=== PATIENT | female | born 1945 | race Caucasian/White ===

== ENCOUNTER 2017-06-13 09:22 | Observation (INO) ==
[2017-06-13 09:56] LABS: Basophils # 0.1 K/mcL (0.0-0.2); Basophils % 0.6 %; Eosinophils # 0.2 K/mcL (0.0-0.6); Eosinophils % 1.7 %; Hematocrit 42.9 % (35.3-44.9); Hemoglobin 13.7 g/dL (11.5-15.4); Immature Granulocytes % 0.3 % (0-4); Lymphocytes # 1.9 K/mcL (0.6-4.6); Lymphocytes % 21.4 %; Mean Corpuscular HGB Conc 31.9 g/dL (31.6-35.5); Mean Corpuscular Hemoglobin 28.9 pg (28.0-33.3); Mean Corpuscular Volume 90.5 fL (83.0-100.0); Mean Platelet Volume 10.5 fL (9.4-12.4); Monocytes # 0.6 K/mcL (0.0-1.3); Monocytes % 6.9 %; Neutrophils # 6.1 K/mcL (1.6-8.9); Platelet Count 320 K/mcL (140-400); Red Blood Count 4.74 M/mcL (3.82-4.97); Red Cell Distribution Width 13.1 % (11.5-14.5); Segmented Neutrophils % 69.1 %
[2017-06-13 10:05] LABS: BUN/Creatinine Ratio 23 (6-26); Blood Urea Nitrogen 17 mg/dL (7-20); Calcium 9.4 mg/dL (8.6-10.8); Carbon Dioxide 25 mEq/L (19-29); Chloride 103 mEq/L (98-109); Glucose 129 mg/dL (70-99); Magnesium 1.9 mg/dL (1.6-2.6); Osmolality,Calculated 287 (280-300); Phosphorous 3.4 mg/dL (2.3-4.7); Potassium 4.5 mEq/L (3.5-4.5); Sodium 137 mEq/L (136-145); eGFR For African Americans > 60 (> 60); eGFR For Non-African Americans > 60 (> 60)
[2017-06-13 10:05] LABS: Prothrombin Time 10.8 Seconds (9.4-12.1)
[2017-06-13 10:07] LABS: Activated Partial Thrombo Time 26.5 Seconds (26.0-36.0)
--- NOTE | 2017-06-13 10:13 | Emergency Department Note ---
Disposition Clinical Impression: Tachycardia Syncope Qualifiers: Syncope type: unspecified Qualified Code(s): R55 - Syncope and collapse Closed head injury Qualifiers: Encounter type: initial encounter Qualified Code(s): S09.90XA - Unspecified injury of head, initial encounter Disposition: Admitted As Inpatient Condition: Fair Referrals: Clarita Henry MD [Primary Care Provider] - Forms: ED Satisfaction Letter Time of Disposition: 12:00 General Adult HPI - General Chief complaint: ED Syncope Stated complaint: syncope/fall Time Seen by Provider: 06/13/17 09:27 Source: patient, family Mode of arrival: wheelchair Limitations: no limitations Nursing Notes Reviewed: Yes Vital Signs Reviewed: Yes - History of Present Illness HPI Narrative: 71-year-old female with past medical history of hypertension and type 2 diabetes presents to the ED for fall with loss of consciousness due to syncope. Patient states she was standing at her desk when she said she also felt lightheaded and dizzy and fell backwards hit the back of her head against the table. She said that she was knocked unconscious for a few seconds with an woke up. She is not feeling any nausea or vomiting but she is having pain in the back of her head as well as in her upper neck. She was able to walk and move afterwards. She said whenever she stood up she was definitely lightheaded and felt dizzy. She has been falling more recently according to family they said in the last 2 or 3 months. She has been following her primary care physician has been to urgent care a few times for these episodes all they have done is increased her blood pressure medications as she was slightly hypertensive. Patient also been keeping a log of both her blood sugars and blood pressures which have been normal. Patient's only surgeries are back surgery and right breast lumpectomy. Patient is complaining of any nausea or vomiting,, chest pain, abdominal pain, change in bowel movements or pain with urination. No pain or tingling or any numbness or weakness going down the arms or legs. There has been no general weakness. Patient is complaining of generalized shortness of breath as it is at rest and also while she gets up and walks. Patient otherwise has no complaints Pain Scale: 3 - Related Data Home Medications Medication Instructions Recorded Confirmed Cholecalciferol (Vitamin D3) 2,000 unit PO DAILY 05/11/16 06/13/17 [Vitamin D] Lactobacillus Combination No.8 1 cap PO DAILY 05/11/16 06/13/17 [Adult Probiotic] Multivit-Min/FA/Lycopen/Lutein 1 tab PO DAILY 05/11/16 06/13/17 [Centrum Silver Tablet] Anastrozole [Arimidex] 1 mg PO DAILY 06/13/17 06/13/17 Aspirin [Lo-Dose Aspirin EC] 81 mg PO DAILY 06/13/17 06/13/17 Atorvastatin [Lipitor] 40 mg PO HS 06/13/17 06/13/17 Fish Oil/Dha/Epa [Fish Oil 1,200 1 cap PO DAILY 06/13/17 06/13/17 mg Fish Oil] Lisinopril [Zestril] 10 mg PO DAILY 06/13/17 06/13/17 Metoprolol [Lopressor] 25 mg PO BID 06/13/17 06/13/17 metFORMIN [Glucophage] 500 mg PO BID 06/13/17 06/13/17 Allergies Allergy/AdvReac Type Severity Reaction Status Date / Time ciprofloxacin [From Cipro] Allergy unknown Verified 06/13/17 09:47 Sulfa (Sulfonamide Allergy unknown Verified 06/13/17 09:47 Antibiotics) Review of Systems: 10 point review of systems done and negative unless otherwise stated in history of present illness. All systems ED: reviewed and negative except as stated. Review of Systems: As Per HPI Past Medical History - Past Medical History Attestation: Yes The following information was validated with the patient. 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 Absent: lymphadenopathy - Chest Chest inspection: Present: normal inspection, symmetric chest wall rise. Absent : tenderness - Respiratory Respiratory exam: Present: normal lung sounds bilaterally. Absent: respiratory distress, wheezes, accessory muscle use - Cardiovascular Cardiovascular exam: Present: normal rhythm, tachycardia, normal heart sounds - Abdominal Exam Abdominal exam: Present: soft, Non-Tender. Absent: tenderness, distention, guarding, rebound, rigidity - Extremities Exam Extremities exam: Present: normal inspection, full ROM, pedal edema (1+ pitting edema bilaterally.). Absent: tenderness - Back Exam Back exam: Present: normal inspection, full ROM. Absent: tenderness, CVA tenderness (R), CVA tenderness (L) - Neurological Exam Neurological exam: Present: alert, oriented X3, CN II-XII intact. Absent: motor sensory deficit - Expanded Neurological Exam Patient oriented to: Present: person, place, time Speech: Present: fluid speech Cranial nerves: EOM function (II, III, IV, ): Normal, facial sensation (V): Normal, facial palsy (VII): Normal, spinal accessory function (XI): Normal, tongue deviation (XII): Normal Cerebellar function: finger to nose: Normal, heel to ocampo: Normal Motor strength - LUE: 5/5 Motor strength - RUE: 5/5 Motor strength - LLE: 5/5 Motor strength - RLE: 5/5 Upper motor neuron exam: felix neglect: Absent bilaterally, pronator drift: Absent bilaterally Sensory exam upper extremity: light touch: Normal Sensory exam lower extremity: light touch: Normal Coma Scale Eye Opening: Spontaneous Coma Scale Motor Response: Obeys Commands Coma Scale Verbal Response: Oriented Coma Scale Total: 15 - Skin Skin exam: Present: warm, dry, intact, normal color Course Course Narrative: 71-year-old female presents to the ED for syncope. She did fall and hit her head did have an episode of loss of consciousness she is not nauseous or vomiting. At this time we will get a CT of the head and neck place her in a cervical collar. Will get EKG, CBC, CMP, troponin as well as urinalysis. While the other basic electrolytes. We will also get chest x-ray. Patient most likely will need to be admitted for further evaluation this was discussed with the patient and family and they agree with this plan. - Reevaluation(s) Reevaluation #1: Patient's d-dimer came back elevated at 6000 she is tachycardic into Neck there is worry about pulmonary embolism her kidney function came back good so we will get a CT angios of her chest to rule out pulmonary embolism. This was discussed with the patient and agree with this. Time: 10:46 - Consultations Consultation #1: Admitted to hospitalist service by Jon Joshi. Time: 11:59 Vital Signs Temperature 97.6 F 06/13/17 09:24 Pulse Rate 114 06/13/17 09:24 Respiratory Rate 18 06/13/17 09:24 Blood Pressure 142/113 06/13/17 09:24 O2 Sat by Pulse Oximetry 98 06/13/17 09:24 Temperature 97.6 F 06/13/17 09:24 Pulse Rate 116 06/13/17 12:00 Respiratory Rate 20 06/13/17 12:00 Blood Pressure 159/84 06/13/17 12:00 O2 Sat by Pulse Oximetry 94 06/13/17 12:00 Oxygen Delivery Oxygen Delivery Room Air Medical Decision Making - MDM Narrative Medical decision making narrative: 71-year-old female presents to the ED complaining of syncope and a fall and hitting her head. She did have a loss of consciousness but no nausea or vomiting. We did do CT of her head and neck these both came back negative she was placed in a c-collar prior to this once the CT of neck and back negative we then took it off her she was only having paraspinal neck tenderness. We did do basic labs as well as a cardiac evaluation chest x-ray and labs came back normal except for a d-dimer. D-dimer was elevated at 6007 got a CTA of her chest which came back showing no pulmonary embolisms. EKG did show a tachycardia with possible PACs this was not a flutter she does state that she has been arrhythmia but is not sure what it is. There is no signs of A. fib. She is not being treated for this arrhythmia. Due to patient's syncopal episodes we felt that admission would be best I spoke with the family and patient may agree. Spoke with the hospitalist who agreed to admit the patient. I spoke with Jon Joshi who agreed to admit the patient to their service. Patient is admitted in stable condition. Chest X-Ray 06/13/17 09:28 IMPRESSION: 1. Mild enlargement of the cardiac silhouette. 2. No acute pulmonary abnormality. D/ / Coy Yancey MD / Coy Yancey MD Interpreting Provider: Coy Yancey MD Head CT 06/13/17 09:30 IMPRESSION: 1. Mild midline occipital soft tissue contusion. No acute calvarial fracture. 2. No acute intracranial abnormality. Subtle findings suggesting chronic small vessel ischemic disease. 3. Normal cervical spine alignment with multilevel degenerative changes. No acute fracture. 4. Incidental 1.4 cm partially calcified right and 0.6 cm hypodense left thyroid nodules (see recommendations). RECOMMENDATIONS: Managing Incidental Thyroid Nodule Detected at CT or MRI or US 1. Further evaluation by thyroid Ultrasound recommended for these incidental nodules: Patient Age 18 years or less - Any nodule. Patient Age 19-34 years old - Nodule 1 cm in size or greater Patient Age 35 years or more - Nodule 1.5 cm in size or greater 2. Follow up thyroid ultrasound also recommend in these scenarios -Solitary nodule with high risk imaging features (locally invasive nodule or suspicious lymph nodes) -Any nodule in a heterogeneous enlarged thyroid gland 3. NO further imaging is recommended in the following scenarios -No f/u imaging is recommended for ITNs not meeting the above criteria. -No US or f/u recommended for ITNs without high risk features in pts. with limited life expectancy or significant co-morbidities, unless clinically warranted. Note: These recommendations do not apply to pts. w/ increased risk for thyroid cancer or pts. with symptomatic thyroid disease. Recommendations for f/u of Incidental Thyroid Nodules (ITN) found on CT, MR, NM and Extrathyroidal US are based upon the ACR white paper and Lea 3-tiered system for managing ITNs: J Am Jose G Radiol. 2015 Aug;12(2): 143-50 D/ / 06/13/2017 11:20:33 Nael Hernandez MD / [place] Interpreting Provider: Nael Hernandez MD Cervical Spine CT 06/13/17 09:35 IMPRESSION: 1. Mild midline occipital soft tissue contusion. No acute calvarial fracture. 2. No acute intracranial abnormality. Subtle findings suggesting chronic small vessel ischemic disease. 3. Normal cervical spine alignment with multilevel degenerative changes. No acute fracture. 4. Incidental 1.4 cm partially calcified right and 0.6 cm hypodense left thyroid nodules (see recommendations). RECOMMENDATIONS: Managing Incidental Thyroid Nodule Detected at CT or MRI or US 1. Further evaluation by thyroid Ultrasound recommended for these incidental nodules: Patient Age 18 years or less - Any nodule. Patient Age 19-34 years old - Nodule 1 cm in size or greater Patient Age 35 years or more - Nodule 1.5 cm in size or greater 2. Follow up thyroid ultrasound also recommend in these scenarios -Solitary nodule with high risk imaging features (locally invasive nodule or suspicious lymph nodes) -Any nodule in a heterogeneous enlarged thyroid gland 3. NO further imaging is recommended in the following scenarios -No f/u imaging is recommended for ITNs not meeting the above criteria. -No US or f/u recommended for ITNs without high risk features in pts. with limited life expectancy or significant co-morbidities, unless clinically warranted. Note: These recommendations do not apply to pts. w/ increased risk for thyroid cancer or pts. with symptomatic thyroid disease. Recommendations for f/u of Incidental Thyroid Nodules (ITN) found on CT, MR, NM and Extrathyroidal US are based upon the ACR white paper and Lea 3-tiered system for managing ITNs: J Am Jose G Radiol. 2015 Aug;12(2): 143-50 D/ / 06/13/2017 11:20:33 Nael Hernandez MD / [place] Interpreting Provider: Nael Hernandez MD Chest CTA 06/13/17 10:45 IMPRESSION: No evidence of pulmonary embolism or acute pulmonary abnormality. D/ / Asif Henson MD / Asif Henson MD Interpreting Provider: Asif Henson MD - Medical Records Medical records reviewed: Yes I reviewed the patient's medical records. - Lab Data Lab results reviewed: Yes I reviewed the patient's lab results. Result diagrams: 06/13/17 09:39 06/13/17 09:40 Lab Results 06/13/17 06/13/17 06/13/17 Range/Units 09:39 09:39 09:39 WBC 8.8 (4.3-11.1) K/mcL RBC 4.74 (3.82-4.97) M/mcL Hgb 13.7 (11.5-15.4) g/dL Hct 42.9 (35.3-44.9) % MCV 90.5 (83.0-100.0) fL MCH 28.9 (28.0-33.3) pg MCHC 31.9 (31.6-35.5) g/dL RDW 13.1 (11.5-14.5) % Plt Count 320 (140-400) K/mcL MPV 10.5 (9.4-12.4) fL Immature Gran % 0.3 (0-4) % Seg Neutrophils % 69.1 % Lymphocytes % 21.4 % Monocytes % 6.9 % Eosinophils % 1.7 % Basophils % 0.6 % Neutrophils # 6.1 (1.6-8.9) K/mcL Lymphocytes # 1.9 (0.6-4.6) K/mcL Monocytes # 0.6 (0.0-1.3) K/mcL Eosinophils # 0.2 (0.0-0.6) K/mcL Basophils # 0.1 (0.0-0.2) K/mcL PT 10.8 (9.4-12.1) Seconds INR 1.0 APTT 26.5 (26.0-36.0) Seconds D-Dimer 6682 H (0-500) ng/mLFEU Sodium (136-145) mEq/L Potassium (3.5-4.5) mEq/L Chloride (98-109) mEq/L Carbon Dioxide (19-29) mEq/L BUN (7-20) mg/dL Creatinine (0.57-1.11) mg/dL Est GFR ( Amer) (> 60) Est GFR (Non-Af Amer) (> 60) BUN/Creatinine Ratio (6-26) Glucose (70-99) mg/dL POC Glucose (58-89) Calculated Osmolality (280-300) Calcium (8.6-10.8) mg/dL Ionized Calcium (1.15-1.35) mmol/L Phosphorus (2.3-4.7) mg/dL Magnesium (1.6-2.6) mg/dL Troponin I 0.00 (0-0.03) ng/mL 06/13/17 06/13/17 Range/Units 09:40 09:49 WBC (4.3-11.1) K/mcL RBC (3.82-4.97) M/mcL Hgb (11.5-15.4) g/dL Hct (35.3-44.9) % MCV (83.0-100.0) fL MCH (28.0-33.3) pg MCHC (31.6-35.5) g/dL RDW (11.5-14.5) % Plt Count (140-400) K/mcL MPV (9.4-12.4) fL Immature Gran % (0-4) % Seg Neutrophils % % Lymphocytes % % Monocytes % % Eosinophils % % Basophils % % Neutrophils # (1.6-8.9) K/mcL Lymphocytes # (0.6-4.6) K/mcL Monocytes # (0.0-1.3) K/mcL Eosinophils # (0.0-0.6) K/mcL Basophils # (0.0-0.2) K/mcL PT (9.4-12.1) Seconds INR APTT (26.0-36.0) Seconds D-Dimer (0-500) ng/mLFEU Sodium 137 (136-145) mEq/L Potassium 4.5 (3.5-4.5) mEq/L Chloride 103 (98-109) mEq/L Carbon Dioxide 25 (19-29) mEq/L BUN 17 (7-20) mg/dL Creatinine 0.74 (0.57-1.11) mg/dL Est GFR ( Amer) > 60 (> 60) Est GFR (Non-Af Amer) > 60 (> 60) BUN/Creatinine Ratio 23 (6-26) Glucose 129 H (70-99) mg/dL POC Glucose 113 H (58-89) Calculated Osmolality 287 (280-300) Calcium 9.4 (8.6-10.8) mg/dL Ionized Calcium 1.16 (1.15-1.35) mmol/L Phosphorus 3.4 (2.3-4.7) mg/dL Magnesium 1.9 (1.6-2.6) mg/dL Troponin I (0-0.03) ng/mL - Radiology Data Radiology results reviewed: Yes I reviewed the patient's radiology results. - EKG Data EKG #1 EKG attestation: Yes I reviewed and interpreted this EKG. EKG results narrative: EKG done at 0 946 review by myself and the attending shows sinus tachycardia with multifocal atrial beats. At a rate of 120, QRS 77, QTC 379 with a normal axis. There are no ST changes, no T-wave abnormalities, no signs of heart strain or hypertrophy, no signs of any heart blocks. There is no signs of a flutter as the P waves are not all the same morphology. No signs of WPW/ Brugada syndrome. Compared with old EKG done which showed normal sinus rhythm with no acute changes were not these atrial beats and this EKG. Attestation Statement - Attestation Attestation: I, Justice Cunha DO, examined this patient [id number] and my medical decision-making was reviewed with Dr. Aroldo Barroso, Resident Physician. I agree with the documented findings, disposition and treatment plan as described except to the extent set forth below. Please see my progress notes for details. Well-appearing 71-year-old female presents to emergency room after having unwitnessed fall this morning. Patient says she got up from bed and felt very dizzy. She is trying to move around her house and his had these symptoms on and off for several weeks to months. When she is trying to go to the kitchen she got lightheaded and fell backwards and hit her head and had loss of consciousness. Patient is currently only on aspirin. She has a history of cardiac arrhythmia and she thinks it is A. fib but is not currently taking any blood thinners. Patient denies any pain except for the posterior aspect of her scalp at this time. There is no visible signs of bleeding or injury. Patient is alert oriented speaking in full sentences on arrival. She has pupils are equal round reactive to light intraocular muscles are intact. Trachea is midline. Patient was placed immediately in a c-collar precautions at this time. Lungs are clear heart is regular abdomen is soft. Patient was off work from his purpose. She has no acute neurologic deficits, no acute facial asymmetry or visible ataxia. Symptoms completely resolved on arrival here. Patient will have detailed evaluation including CT of the head, CT cervical spine, chest x-ray EKG labs including CBC chemistry troponin and electrolytes. Urinalysis also ordered. Patient will most likely need admission for what appears to be symptomatic palpitations with syncopal event today with mechanical fall closed head injury. Patient family and informed comfortable with this plan. Patient was evaluated at the bedside with the daughter and she agrees with the patient is acting appropriately and does not show any acute signs of neurologic change or deficit. See detailed documentation of physical exam, medical intervention, medical decision-making and disposition resident physician's note. 1200 Patient found an elevated d-dimer with negative CT angiography of the chest. Workup is otherwise unremarkable at this time. Fluid hydration be given secondary to the persistent tachycardia. Patient admitted to hospitals for definitive evaluation of syncopal event and fall closed head injury. No other acute pathology or injuries noted during this evaluation and treatment course.
[2017-06-13 10:38] LABS: Ionized Calcium 1.16 mmol/L (1.15-1.35)
[2017-06-13] MEDS ORDERED: 0.9 % Sodium Chloride 1,000 ML IVC ONE (12:14)
[2017-06-13 12:51] LABS: Bilirubin,Urine Negative (Negative); Blood,Urine Trace (Negative); Clarity,Urine Cloudy (Clear); Color,Urine Yellow (Yellow); Glucose,Urine (UA) Normal (Normal); Ketones,Urine Negative (Negative); Leukocyte Esterase,Urine Large (Negative); Nitrite,Urine Negative (Negative); Protein,Urine Negative (Neg-Trace); Specific Gravity,Urine > 1.030 (1.010-1.025); Urobilinogen,Urine Normal (Normal)
[2017-06-13 12:52] LABS: Bacteria,Urine Few per hpf (None-Few); Hyaline Casts,Urine None Seen per lpf (None-Few); Squamous Epithelial Cell,Urine Many per lpf (None-Few); WBC,Urine TNTC per hpf (0-3)
[2017-06-13 13:18] LABS: RBC,Urine 0-3 per hpf (0-3)
[2017-06-13 13:31] LABS: Renal Epithelial Cells,Urine Moderate per hpf (None-Few)
[2017-06-13] MEDS ORDERED: Acetaminophen 325 MG TABLET PO PRN (14:07)
[2017-06-13] MEDS ORDERED: Naloxone 0.4 MG/ML INJ IVP PRN (14:07)
[2017-06-13] MEDS ORDERED: Ondansetron 4 MG/2 ML VIAL IVP PRN (14:07)
[2017-06-13] MEDS ORDERED: D5% in Water 1,000 ML IVC PRN (14:17)
[2017-06-13] MEDS ORDERED: *HR* Dextrose 50 % in Water (Syg) 50 ML SYRINGE IVP PRN (14:17)
[2017-06-13] MEDS ORDERED: Dextrose Gel 15 GM PO PRN ×2 (14:17)
--- NOTE | 2017-06-13 14:29 | Internal Med History&Physical ---
<Jelena Torres - Last Filed: 06/13/17 15:01> Date of Encounter: 06/13/17 Time of Encounter: 14:21 Assessment and Plan (1) Syncope Current visit: Yes Status: Acute Patient has been experiencing the past several weeks of lightheadedness and near syncopal events. Today she did experience an episode of lightheadedness and she fell backwards and struck her head on a desk. She did lose consciousness for a few seconds. CT of head with no acute intracranial abnormalities. We will continue with neuro exams every 4 hours We will obtain cardiac echo Continuous cardiac monitoring Fall precautions We will obtain MRI of head Carotid Doppler Check lipid profile Continue with aspirin and statin Qualifiers: Syncope type: unspecified Qualified Code(s): R55 - Syncope and collapse (2) Closed head injury Current visit: Yes Status: Acute Qualifiers: Encounter type: initial encounter Qualified Code(s): S09.90XA - Unspecified injury of head, initial encounter (3) Atrial flutter Current visit: Yes Status: Chronic 1 patient states that atrial flutter is chronic she is on aspirin as well as metoprolol, will continue Continuous cardiac monitoring Qualifiers: Atrial flutter type: unspecified Qualified Code(s): I48.92 - Unspecified atrial flutter (4) Hypertension Current visit: Yes Status: Chronic Patient has had chronic hypertension continue with lisinopril and metoprolol Check orthostatic vital signs Qualifiers: Hypertension type: essential hypertension Qualified Code(s): I10 - Essential (primary) hypertension (5) Diabetes type 2, controlled Current visit: No Status: Chronic Accu-Cheks before meals at bedtime with sliding scale insulin-hold oral medications for now Diabetic diet Qualifiers: Diabetes mellitus complication status: without complication Diabetes mellitus retirement insulin use: without retirement use Qualified Code(s): E11.9 - Type 2 diabetes mellitus without complications (6) DVT prophylaxis Current visit: Yes Status: Acute JOSEF johnson Internal Medicine - H&P: HPI Chief complaint: Syncope Admitted From: Emergency Dept Plans for Post Hospital Care: Home History of present illness: Ms. Rojas is a 71 year old female past medical history of right breast cancer hypertension diabetes recurrent UTI and atrial flutter. According to the patient she had sustained a mechanical fall landing on her right hip and arm in February. Since that time she has been experiencing episodes of where she feels lightheaded and dizzy and has had near syncopal episodes. Today she was rearranging books and standing at her last when she felt lightheaded and dizzy and fell backwards. She did not strike the back of her head against a table. She was unconscious for a few seconds and awoke was a appropriate and oriented She does not recall how long she has been out. She also has been experiencing elevated blood pressure and has been followed by her primary care physician. She has been keeping a log of her blood pressure and blood sugar. States that her blood pressure medications recently been increased. She denies any headaches or vision changes generalized weakness and chest pain she does have some shortness of breath on exertion. She presented to the ER. Breast complaints. [facility] ER records lab work was unremarkable except elevated d-dimer at 682. CTA chest was obtained which was negative for any PE. She has been admitted for further workup and evaluation. Presently patient denies any chest pain or shortness of breath. During assessment patient did experience episodes of lightheadedness that she did not lose consciousness. Rest of neuro exam was unremarkable. She is hemodynamically stable this time. I did review this case with Dr. Joshi who agrees with plan Past Med Surg Social Fam HX - Past Medical History Medical history: diabetes, hypertension, other Psychiatric history: no psych history - Social History Smoking Status: Never smoker Smokeless Tobacco Status: No Alcohol use: none Drug use: none - Family History Father Living Status: Cause of : HT heart disease Mother Living Status: Cause of : diabetes Internal Medicine - H&P: Meds Cholecalciferol (Vitamin D3) [Vitamin D] 2,000 unit PO DAILY 05/11/16 [History] Lactobacillus Combination No.8 [Adult Probiotic] 1 cap PO DAILY 05/11/16 [ History] Multivit-Min/FA/Lycopen/Lutein [Centrum Silver Tablet] 1 tab PO DAILY 05/11/16 [ History] Anastrozole [Arimidex] 1 mg PO DAILY 06/13/17 [History] Aspirin [Lo-Dose Aspirin EC] 81 mg PO DAILY 06/13/17 [History] Atorvastatin [Lipitor] 40 mg PO HS 06/13/17 [History] Fish Oil/Dha/Epa [Fish Oil 1,200 mg Fish Oil] 1 cap PO DAILY 06/13/17 [History] Lisinopril [Zestril] 10 mg PO DAILY 06/13/17 [History] Metoprolol [Lopressor] 25 mg PO BID 06/13/17 [History] metFORMIN [Glucophage] 500 mg PO BID 06/13/17 [History] 3 Allergy/AdvReac Type Severity Reaction Status Date / Time ciprofloxacin [From Cipro] Allergy unknown Verified 06/13/17 09:47 Sulfa (Sulfonamide Allergy unknown Verified 06/13/17 09:47 Antibiotics) All Systems PM: A 10-system review of systems was performed and is negative for pertinent findings except as documented above in the HPI. - Constitutional Constitutional: no chills, no fever(s), no night sweats - EENT Eyes: no change in vision, no discharge, no pain, no photophobia Ears: no ear discharge, no ear pain, no tinnitus Nose, mouth and throat: no dysphagia, no nasal discharge, no neck pain, no sore throat - Cardiovascular Cardiovascular ROS IM: dyspnea on exertion, lightheadedness, no chest pain, no diaphoresis, no dyspnea, no palpitations, no syncope - Respiratory Respiratory: dyspnea on exertion, no cough, no dyspnea, no wheezing, no excessive phlegm production - Gastrointestinal Gastrointestinal: no abdominal pain, no diarrhea, no hematemesis, no hematochezia, no melena, no nausea, no vomiting - Genitourinary Genitourinary: no change in urinary stream, no dysuria, no flank pain, no hematuria - Musculoskeletal Musculoskeletal ROS IM: arthralgias, no numbness, no tingling - Integumentary Integumentary IM: no rash, no unusual bruising - Neurological Neurological ROS: frequent falls - Hematologic/Lymphatic Hematologic/Lymphatic: no easy bruising - Constitutional Vitals: Temp Pulse Resp BP Pulse Ox 97.4 F L 111 16 161/102 98 06/13/17 13:50 06/13/17 13:50 06/13/17 13:50 06/13/17 13:50 06/13/17 14:17 General appearance: Present: A&O X 3, answers questions appropriately - Head Head exam: Present: atraumatic, normocephalic - Eye Eye exam: Present: PERRL, conjuntiva pink, sclera anicteric Pupils: Present: PERRL - Neck Neck exam general surgery: Present: supple, trachea midline. Absent: lymphadenopathy - Respiratory Respiratory exam: Present: CTAB. Absent: accessory muscle use, rales, rhonchi, wheezes - Cardiovascular Cardiovascular exam: Present: irregular rhythm, +S1, +S2. Absent: diastolic murmur, gallop, rubs, systolic murmur - GI/Abdominal GI/Abdominal exam: Present: normal bowel sounds, soft, no peritoneal signs. Absent: distended, tenderness - Extremities Exam Extremities exam: Present: warm, radial pulses palpable and symmetrical. Absent : calf tenderness, cyanotic, pedal edema - Neurological Exam Neurological exam: Present: CN II-XII intact, oriented X3, no focal deficits, strengths equal and symetr throughout. Absent: pronater drift, facial droop, speech deficit - Skin Skin exam: Present: dry, intact Internal Med - H&P Results - Labs CBC & Chem 7: 06/13/17 09:39 06/13/17 09:40 - EKG Data Prior EKG available for review: yes When compared to previous EKG: there are significant changes EKG comments: 06/13/17 14:35 Patient is presently in atrial flutter rate of 100 previous EKG just showed sinus rhythm - Diagnostic Studies Other Images Additional comments: Chest X-Ray 06/13/17 09:28 IMPRESSION: 1. Mild enlargement of the cardiac silhouette. 2. No acute pulmonary abnormality. D/ / Coy Yancey MD / Coy Yancey MD Interpreting Provider: Coy Yancey MD Head CT 06/13/17 09:30 IMPRESSION: 1. Mild midline occipital soft tissue contusion. No acute calvarial fracture. 2. No acute intracranial abnormality. Subtle findings suggesting chronic small vessel ischemic disease. 3. Normal cervical spine alignment with multilevel degenerative changes. No acute fracture. 4. Incidental 1.4 cm partially calcified right and 0.6 cm hypodense left thyroid nodules (see recommendations). RECOMMENDATIONS: Managing Incidental Thyroid Nodule Detected at CT or MRI or US 1. Further evaluation by thyroid Ultrasound recommended for these incidental nodules: Patient Age 18 years or less - Any nodule. Patient Age 19-34 years old - Nodule 1 cm in size or greater Patient Age 35 years or more - Nodule 1.5 cm in size or greater 2. Follow up thyroid ultrasound also recommend in these scenarios -Solitary nodule with high risk imaging features (locally invasive nodule or suspicious lymph nodes) -Any nodule in a heterogeneous enlarged thyroid gland 3. NO further imaging is recommended in the following scenarios -No f/u imaging is recommended for ITNs not meeting the above criteria. -No US or f/u recommended for ITNs without high risk features in pts. with limited life expectancy or significant co-morbidities, unless clinically warranted. Note: These recommendations do not apply to pts. w/ increased risk for thyroid cancer or pts. with symptomatic thyroid disease. Recommendations for f/u of Incidental Thyroid Nodules (ITN) found on CT, MR, NM and Extrathyroidal US are based upon the ACR white paper and Lea 3-tiered system for managing ITNs: J Am Jose G Radiol. 2015 Aug;12(2): 143-50 D/ / 06/13/2017 11:20:33 Nael Hernandez MD / [place] Interpreting Provider: Nael Hernandez MD Cervical Spine CT 06/13/17 09:35 IMPRESSION: 1. Mild midline occipital soft tissue contusion. No acute calvarial fracture. 2. No acute intracranial abnormality. Subtle findings suggesting chronic small vessel ischemic disease. 3. Normal cervical spine alignment with multilevel degenerative changes. No acute fracture. 4. Incidental 1.4 cm partially calcified right and 0.6 cm hypodense left thyroid nodules (see recommendations). RECOMMENDATIONS: Managing Incidental Thyroid Nodule Detected at CT or MRI or US 1. Further evaluation by thyroid Ultrasound recommended for these incidental nodules: Patient Age 18 years or less - Any nodule. Patient Age 19-34 years old - Nodule 1 cm in size or greater Patient Age 35 years or more - Nodule 1.5 cm in size or greater 2. Follow up thyroid ultrasound also recommend in these scenarios -Solitary nodule with high risk imaging features (locally invasive nodule or suspicious lymph nodes) -Any nodule in a heterogeneous enlarged thyroid gland 3. NO further imaging is recommended in the following scenarios -No f/u imaging is recommended for ITNs not meeting the above criteria. -No US or f/u recommended for ITNs without high risk features in pts. with limited life expectancy or significant co-morbidities, unless clinically warranted. Note: These recommendations do not apply to pts. w/ increased risk for thyroid cancer or pts. with symptomatic thyroid disease. Recommendations for f/u of Incidental Thyroid Nodules (ITN) found on CT, MR, NM and Extrathyroidal US are based upon the ACR white paper and Lae 3-tiered system for managing ITNs: J Am Jose G Radiol. 2015 Aug;12(2): 143-50 D/ / 06/13/2017 11:20:33 Nael Hernandez MD / [place] Interpreting Provider: Nael Hernandez MD Chest CTA 06/13/17 10:45 IMPRESSION: No evidence of pulmonary embolism or acute pulmonary abnormality. D/ / Asif Henson MD / Asif Henson MD Interpreting Provider: Asif Henson MD <Jon Joshi - Last Filed: 06/13/17 22:02> Date of Encounter: 06/13/17 Internal Medicine - H&P: HPI History of present illness: Ms. Rojas is a 71 year old female All Systems PM: A 10-system review of systems was performed and is negative for pertinent findings except as documented above in the HPI. - Constitutional Vitals: Temp Pulse Resp BP Pulse Ox 97.5 F L 84 18 138/82 95 06/13/17 19:37 06/13/17 19:37 06/13/17 19:37 06/13/17 19:37 06/13/17 19:37 Internal Med - H&P Results - Labs CBC & Chem 7: 06/13/17 09:39 06/13/17 09:40 - Impressions ITS Impressions Brain MRI 06/13/17 14:10 IMPRESSION: 1. No acute intracranial abnormality. No acute infarct. 2. Mild global parenchymal volume loss with minimal chronic vascular ischemic change. D/ / James Alston MD / James Alston MD Interpreting Provider: James Alston MD - Attending Attestation I have personally performed a face to face evaluation on this patient. I have reviewed and agree with the care plan. History and Exam by me shows: 71 y/o female with dizziness and syncopal episodes. Has hx of atrial flutter. No CP or SOB. Exam Alert. Comfortable Hematoma on posterior scalp Heart reg Agree with plan as outlined above.
[2017-06-13] MEDS: Insulin LISPRO 300 UNITS/3 ML VIAL SQ SCH (16:35)
[2017-06-13] MEDS: 0.9 % Sodium Chloride 1,000 ML IVC SCH (16:35)
[2017-06-13] MEDS ORDERED: Insulin LISPRO 300 UNITS/3 ML VIAL SQ SCH (21:00)
[2017-06-14 04:45] LABS: Basophils # 0.1 K/mcL (0.0-0.2); Basophils % 0.7 %; Eosinophils # 0.4 K/mcL (0.0-0.6); Eosinophils % 4.4 %; Hematocrit 39.6 % (35.3-44.9); Hemoglobin 12.8 g/dL (11.5-15.4); Immature Granulocytes % 0.1 % (0-4); Lymphocytes # 2.4 K/mcL (0.6-4.6); Mean Corpuscular HGB Conc 32.3 g/dL (31.6-35.5); Mean Corpuscular Hemoglobin 28.8 pg (28.0-33.3); Mean Corpuscular Volume 89.2 fL (83.0-100.0); Mean Platelet Volume 10.9 fL (9.4-12.4); Monocytes # 0.9 K/mcL (0.0-1.3); Monocytes % 10.8 %; Neutrophils # 4.5 K/mcL (1.6-8.9); Platelet Count 260 K/mcL (140-400); Red Blood Count 4.44 M/mcL (3.82-4.97); Red Cell Distribution Width 13.1 % (11.5-14.5)
[2017-06-14] MEDS: 0.9 % Sodium Chloride 1,000 ML IVC SCH (04:52)
[2017-06-14 05:03] LABS: BUN/Creatinine Ratio 19 (6-26); Blood Urea Nitrogen 13 mg/dL (7-20); Calcium 8.8 mg/dL (8.6-10.8); Carbon Dioxide 21 mEq/L (19-29); Chloride 109 mEq/L (98-109); Chol/HDL Ratio 2.8 (0-4.9); Cholesterol 121 mg/dL (< 200); Glucose 141 mg/dL (70-99); HDL Cholesterol 43 mg/dL (40-59); LDL Cholesterol,Calculated 57 mg/dL (0-99); Magnesium 1.5 mg/dL (1.6-2.6); Osmolality,Calculated 288 (280-300); Potassium 4.3 mEq/L (3.5-4.5); Sodium 138 mEq/L (136-145); Triglycerides 107 mg/dL (< 150); eGFR For African Americans > 60 (> 60); eGFR For Non-African Americans > 60 (> 60)
--- NOTE | 2017-06-14 05:54 | Electrocardiograph Report ---
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
[2017-06-14] MEDS ORDERED: Lactobacillus 1 EACH CAP.SPRINK PO SCH (09:00)
[2017-06-14] MEDS ORDERED: Multivit/Ca/Min/Fe/FA 1 TAB TABLET PO SCH (09:00)
[2017-06-14] MEDS ORDERED: Anastrozole 1 MG TABLET PO SCH (09:00)
[2017-06-14] MEDS ORDERED: Cholecalciferol (D-3) 1,000 UNIT TABLET PO SCH (09:00)
[2017-06-14] MEDS ORDERED: FISH OIL PO SCH (09:00)
[2017-06-14] MEDS ORDERED: Aspirin Enteric Coated 81 MG Tablet PO SCH (09:00)
[2017-06-14] MEDS: Insulin LISPRO 300 UNITS/3 ML VIAL SQ SCH ×2 (09:04→12:24)
--- NOTE | 2017-06-14 11:54 | Discharge Summary ---
Date of Encounter: 06/14/17 Time of Encounter: 11:29 - Discharge Diagnosis (1) Syncope Priority: Primary Status: Acute Qualifiers: Syncope type: unspecified Qualified Code(s): R55 - Syncope and collapse (2) Atrial flutter Priority: Secondary Status: Chronic Qualifiers: Atrial flutter type: unspecified Qualified Code(s): I48.92 - Unspecified atrial flutter (3) Hypertension Priority: Secondary Status: Chronic Qualifiers: Hypertension type: essential hypertension Qualified Code(s): I10 - Essential (primary) hypertension (4) Frequent UTI Priority: Secondary Status: Chronic (5) Diabetes type 2, controlled Priority: Secondary Status: Chronic Qualifiers: Diabetes mellitus complication status: without complication Diabetes mellitus manager long term care insulin use: without penitentiary use Qualified Code(s): E11.9 - Type 2 diabetes mellitus without complications - Discharge Medications Home Medications: Cholecalciferol (Vitamin D3) [Vitamin D3] 2,000 unit PO DAILY 05/11/16 [History] Lactobacillus Combination No.8 [Adult Probiotic] 1 cap PO DAILY 05/11/16 [ History] Multivit-Min/FA/Lycopen/Lutein [Centrum Silver Tablet] 1 tab PO DAILY 05/11/16 [ History] Anastrozole [Arimidex] 1 mg PO DAILY 06/13/17 [History] Aspirin [Lo-Dose Aspirin EC] 81 mg PO DAILY 06/13/17 [History] Atorvastatin [Lipitor] 40 mg PO HS 06/13/17 [History] Fish Oil/Dha/Epa [Fish Oil 1,200 mg Fish Oil] 1 cap PO DAILY 06/13/17 [History] Lisinopril [Zestril] 10 mg PO DAILY 06/13/17 [History] metFORMIN [Glucophage] 500 mg PO BID 06/13/17 [History] Metoprolol [Lopressor] 75 mg PO BID 30 Days tablet 06/14/17 [Rx] Allergies/Adverse Reactions: 3 Allergy/AdvReac Type Severity Reaction Status Date / Time ciprofloxacin [From Cipro] Allergy unknown Verified 06/13/17 09:47 Sulfa (Sulfonamide Allergy unknown Verified 06/13/17 09:47 Antibiotics) Procedures/tests Complete & Pending: Procedures Performed prior 72 hours Category Date Time Status MR head/brain wo con [MR] Routine MRI 06/13/17 14:10 Completed ECG event monitor 4 weeks [ECG] Routine Y 06/14/17 11:28 Ordered EV carotid duplex imaging BI Routine Y 06/13/17 14:11 Completed EV echocardiogram Routine Y 06/13/17 14:10 Completed Date of admission: 06/13/17 12:52 Primary care physician: Clarita Henry - Patient Status Disposition: Home, Self-Care Condition: Good Overall status at discharge: patient is back to baseline - Discharge Instructions Follow Up With: Clarita Henry MD [Primary Care Provider] - Nico Jerome MD [Partnered Physician] - Additional Instructions: please wear holter monitor for 4 weeks please f/u with PCP in 1-2 weeks - Diet and Activity Activity: increase activity as tolerated Hospital course: Ms. Rojas is a 71 year old female past medical history of right breast cancer hypertension diabetes recurrent UTI and atrial flutter pt presented to ER with syncopal episode. She denied any prodromal symptoms and any CP / SOB. She did c/o frequent syncopal episodes. Pt was admitted in the hospital and placed her on equipment monitor phototypesetting. She does have atrial flutter with VR any where between 80-110. Pt did mention she has chronic atrial flutter problem, but when I talked to PCP she mentioned pt was never diagnosed with Atrial flutter, but she has sinus tachycardia. Also recently PCP inc her Metoprolol to 50mg BID. Her HR is still in low 100's. So will inc Metoprolol to 75mg PO BID. Her Brain MRI - did not show any acute CVA. Her CTA showed no PE. Cervical spine CT sowed incidental 1.4cm partially calcified Rt and 0.6cm hypodense left thyroid nodule. However her TSH - WNL. She had 2 D Echo done here, waiting on final report. Her syncopal episodes seems to be due to Atrial flutter, so will d/c her home with holter monitor for 4 weeks, and inc Metoprolol to 75mg. Also talked to pt' s PCP and updated her about current plan of care. For her chronic recurrent UTO , recommend to continue prophylactic abx Macrobid - Time Spent with Patient Total time spent providing and/or coordinating discharge services: - Constitutional Vitals: Temp Pulse Resp BP Pulse Ox 98.1 F 117 16 135/84 97 06/14/17 08:09 06/14/17 08:09 06/14/17 08:09 06/14/17 08:09 06/14/17 09:20 General appearance: Present: A&O X 3, answers questions appropriately - Head Head exam: Present: atraumatic, normal inspection - Neck Neck exam general surgery: Present: supple - Respiratory Respiratory exam: Present: decreased breath sounds. Absent: chest wall tenderness, rales, respiratory distress, rhonchi, wheezes - Cardiovascular Cardiovascular exam: Present: irregular rhythm, +S1, +S2 - GI/Abdominal GI/Abdominal exam: Present: normal bowel sounds, soft. Absent: rebound, rigid, tenderness - Extremities Exam Extremities exam: Absent: calf tenderness, pedal edema, tenderness - Back Exam Back exam: Absent: CVA tenderness (L), CVA tenderness (R) - Neurological Exam Neurological exam: Present: alert, oriented X3 - Psychiatric Psychiatric exam: Present: normal affect, normal mood - VTE Documentation of Mechanical Device: Graduated compression elastic hosiery
[2017-06-14 11:55] VITALS: BP 153/80
== END 2017-06-14 16:45 | disposition home or self-care (01) ==
LOC: 2ANU 09:22 → EMEROO 09:22 → 2ANU 13:18
PROVIDERS: ADMIT Internal Medicine; ATTEND Family Medicine

== ENCOUNTER 2017-06-14 20:23 | Inpatient (IN) ==
[2017-06-14] MEDS ORDERED: 0.9 % Sodium Chloride 500 ML IVC ONE (20:51)
--- NOTE | 2017-06-14 20:57 | Emergency Department Note ---
Disposition Clinical Impression: Sick sinus syndrome Disposition: Admitted As Inpatient Condition: Good Chest Pain HPI - General Chief Complaint: ED Chest Pain Stated Complaint: hear monitor going off Time Seen by Provider: 06/14/17 20:27 Source: patient Limitations: no limitations Vital Signs Reviewed: Yes Nursing Notes Reviewed: Yes - History of Present Illness HPI Narrative: Patient presents after she was called to come to the emergency department after abnormal director of cardiac rehabilitation. Physician to physician report from Dr. Aguirre was obtained prior to her arrival. Patient was admitted to the hospital for A. fib and UTI. Patient initial presenting complaint was dizziness. She was discharged with a director of cardiac rehabilitation. Patient was discharged to 4:00 and director of cardiac rehabilitation seen red a flutter with rates into the 120s with associated [address] Aguirre requests the patient come to the hospital for admission to obtain a pacemaker. Recommends holding metoprolol and allow her to be tachycardic. Patient is to be admitted to the hospitalist service with cardiology consult and plan pacemaker placement. Patient has had several episodes of near syncope since she left the hospital. Patient states she has some associated chest fluttering but no significant pain. Patient has had occasional shortness of breath. Her biggest chief complaint is the episodes of near syncope. Severity scale (1-10): 0 - Related Data Home Medications Medication Instructions Recorded Confirmed Cholecalciferol (Vitamin D3) 2,000 unit PO DAILY 05/11/16 06/14/17 [Vitamin D3] Lactobacillus Combination No.8 1 cap PO DAILY 05/11/16 06/14/17 [Adult Probiotic] Multivit-Min/FA/Lycopen/Lutein 1 tab PO DAILY 05/11/16 06/14/17 [Centrum Silver Tablet] Anastrozole [Arimidex] 1 mg PO DAILY 06/13/17 06/14/17 Aspirin [Lo-Dose Aspirin EC] 81 mg PO DAILY 06/13/17 06/14/17 Atorvastatin [Lipitor] 40 mg PO HS 06/13/17 06/14/17 Fish Oil/Dha/Epa [Fish Oil 1,200 1 cap PO DAILY 06/13/17 06/14/17 mg Fish Oil] Lisinopril [Zestril] 10 mg PO DAILY 06/13/17 06/14/17 metFORMIN [Glucophage] 500 mg PO BID 06/13/17 06/14/17 Previous Rx's Medication Instructions Recorded Metoprolol [Lopressor] 75 mg PO BID 30 Days tablet 06/14/17 Allergies Allergy/AdvReac Type Severity Reaction Status Date / Time ciprofloxacin [From Cipro] Allergy unknown Verified 06/13/17 09:47 Sulfa (Sulfonamide Allergy unknown Verified 06/13/17 09:47 Antibiotics) Review of Systems: CONSTITUTIONAL: No weight loss, fever, chills, weakness or fatigue. HEENT: Eyes: No visual changes. Ears, Nose, Throat: No hearing loss, difficulty talking or unable to swallow. SKIN: No rash or itching. CARDIOVASCULAR: Palpitations No chest pain, chest pressure or chest discomfort. No edema. RESPIRATORY: No shortness of breath, cough or sputum. GASTROINTESTINAL: No anorexia, nausea, vomiting or diarrhea. No abdominal pain or blood. GENITOURINARY: No burning on urination or hematuria. NEUROLOGICAL: Dizziness and near syncope. No ataxia, numbness or tingling in the extremities. No change in bowel or bladder control. MUSCULOSKELETAL: No muscle pain, back pain, joint pain or stiffness. Chest Pain PMH - Past Medical History Medical history: Reports: diabetes, hypertension, other Psychiatric history: Reports: no psych history ELECTRIC TRANSFER OPERATOR history: Reports: no ELECTRIC TRANSFER OPERATOR history - Social History Smoking Status: Never smoker Alcohol use: Reports: none Drug use: Reports: none Physical Exam General appearance: NAD, conversant Eyes: anicteric sclerae, moist conjunctivae; PERRL HENT: Atraumatic; oropharynx clear with moist mucous membranes and no mucosal ulcerations Neck: Normal inspection; Trachea midline; FROM, supple Lungs: CTA, with normal respiratory effort and no intercostal retractions CV: Irregular and tachycardic Abdomen: Soft, non-tender; no rebound or gaurding Extremities: No peripheral edema or extremity lymphadenopathy Skin: Normal temperature; no rash, ulcers or lesions Psych: Appropriate mood and affect Neuro: alert and oriented to person, place and time - General Limitations: no limitations General appearance: alert, in no apparent distress Course - Consultations Consultation #1: Discussed with the hospitalist. Patient accepted for admission. Vital Signs Temperature 98.1 F 06/14/17 20:31 Pulse Rate 128 06/14/17 20:31 Respiratory Rate 18 06/14/17 20:31 Blood Pressure 149/106 06/14/17 20:31 O2 Sat by Pulse Oximetry 95 06/14/17 20:31 Temperature 98.1 F 06/14/17 20:31 Pulse Rate 96 06/14/17 21:32 Respiratory Rate 18 06/14/17 21:32 Blood Pressure 144/118 06/14/17 21:32 O2 Sat by Pulse Oximetry 95 06/14/17 21:32 Oxygen Delivery Oxygen Delivery Room Air Chest Pain - Medical Records Medical records reviewed: Yes I reviewed the patient's medical records. - Lab Data Lab results reviewed: Yes I reviewed the patient's lab results. Result diagrams: 06/14/17 21:00 06/14/17 20:58 Lab Results 06/14/17 06/14/17 06/14/17 Range/Units 20:58 20:58 20:58 WBC (4.3-11.1) K/mcL RBC (3.82-4.97) M/mcL Hgb (11.5-15.4) g/dL Hct (35.3-44.9) % MCV (83.0-100.0) fL MCH (28.0-33.3) pg MCHC (31.6-35.5) g/dL RDW (11.5-14.5) % Plt Count (140-400) K/mcL MPV (9.4-12.4) fL Immature Gran % (0-4) % Seg Neutrophils % % Lymphocytes % % Monocytes % % Eosinophils % % Basophils % % Neutrophils # (1.6-8.9) K/mcL Lymphocytes # (0.6-4.6) K/mcL Monocytes # (0.0-1.3) K/mcL Eosinophils # (0.0-0.6) K/mcL Basophils # (0.0-0.2) K/mcL Immature Plt Fraction (1.1-6.1) % PT 11.1 (9.4-12.1) Seconds INR 1.0 Sodium 138 (136-145) mEq/L Potassium 4.2 (3.5-4.5) mEq/L Chloride 105 (98-109) mEq/L Carbon Dioxide 22 (19-29) mEq/L BUN 15 (7-20) mg/dL Creatinine 0.82 (0.57-1.11) mg/dL Est GFR ( Amer) > 60 (> 60) Est GFR (Non-Af Amer) > 60 (> 60) BUN/Creatinine Ratio 18 (6-26) Glucose 210 H (70-99) mg/dL Calculated Osmolality 293 (280-300) Calcium 9.0 (8.6-10.8) mg/dL Magnesium 1.8 (1.6-2.6) mg/dL Troponin I (0-0.03) ng/mL TSH 4.192 (0.350-4.840) mcIU/mL 06/14/17 06/14/17 Range/Units 20:58 21:00 WBC 8.4 (4.3-11.1) K/mcL RBC 4.61 (3.82-4.97) M/mcL Hgb 13.4 (11.5-15.4) g/dL Hct 41.0 (35.3-44.9) % MCV 88.9 (83.0-100.0) fL MCH 29.1 (28.0-33.3) pg MCHC 32.7 (31.6-35.5) g/dL RDW 13.2 (11.5-14.5) % Plt Count 292 (140-400) K/mcL MPV 10.3 (9.4-12.4) fL Immature Gran % 0.2 (0-4) % Seg Neutrophils % 55.4 % Lymphocytes % 29.9 % Monocytes % 8.4 % Eosinophils % 5.5 % Basophils % 0.6 % Neutrophils # 4.6 (1.6-8.9) K/mcL Lymphocytes # 2.5 (0.6-4.6) K/mcL Monocytes # 0.7 (0.0-1.3) K/mcL Eosinophils # 0.5 (0.0-0.6) K/mcL Basophils # 0.1 (0.0-0.2) K/mcL Immature Plt Fraction 3.0 (1.1-6.1) % PT (9.4-12.1) Seconds INR Sodium (136-145) mEq/L Potassium (3.5-4.5) mEq/L Chloride (98-109) mEq/L Carbon Dioxide (19-29) mEq/L BUN (7-20) mg/dL Creatinine (0.57-1.11) mg/dL Est GFR ( Amer) (> 60) Est GFR (Non-Af Amer) (> 60) BUN/Creatinine Ratio (6-26) Glucose (70-99) mg/dL Calculated Osmolality (280-300) Calcium (8.6-10.8) mg/dL Magnesium (1.6-2.6) mg/dL Troponin I 0.00 (0-0.03) ng/mL TSH (0.350-4.840) mcIU/mL - Radiology Data Radiology results reviewed: Yes I reviewed the patient's radiology results. - EKG Data EKG attestation: Yes I reviewed and interpreted this EKG. EKG results narrative: EKG shows atrial fibrillation with ventricular rate of 119. QRS 77. QTC 358. Patient has no significant ST elevations or depressions. Attestation Statement - Attestation Attestation: I examined this patient and my medical decision-making was reviewed with the Resident Physician, Dr. Mosley. I agree with the documented findings, disposition and treatment plan as described except to the extent set forth below. Patient is a 71-year-old white female who was recently admitted for atrial flutter and UTI and discharged home without cardiac consult during her admission. She was sent out with ulcer monitoring and followed up with cardiology and was found to the having changes concerning for sick sinus syndrome. Patient is being sent from the auto bumper straightener's office, Dr. Aguirre contacted us directly to notify us that he was sending her over as well as provide some additional orders and he did not want us to start any medications if she was tachycardic on arrival. He also asked us to hold her metoprolol. Apparently on her monitoring she been having episodes of long pauses where she would go from a tachycardic rate down into a rate of the 30s. Patient states during these episodes she was becoming near syncopal. On arrival patient denies any lightheadedness, no chest pain pressure, no shortness of breath but just cannot appreciate her heart fluttering. On arrival patient is in atrial fibrillation with RVR with a stable blood pressure and her heart rate is been ranging from 95 bpm to 115 bpm. I agree with the patient's physical exam findings as documented. EKG does not show any acute ischemia. Chest x-ray is unremarkable. Labs were drawn and sent and pending at this time. Case was discussed with the hospitalist who accepted the patient for admission and cardiology was consulate from the ED following Dr. Lim's conversation by phone. Patient remains hemodynamically stable at this time.
[2017-06-14 21:09] LABS: Basophils # 0.1 K/mcL (0.0-0.2); Basophils % 0.6 %; Eosinophils # 0.5 K/mcL (0.0-0.6); Eosinophils % 5.5 %; Hemoglobin 13.4 g/dL (11.5-15.4); Immature Granulocytes % 0.2 % (0-4); Lymphocytes # 2.5 K/mcL (0.6-4.6); Lymphocytes % 29.9 %; Mean Corpuscular HGB Conc 32.7 g/dL (31.6-35.5); Mean Corpuscular Hemoglobin 29.1 pg (28.0-33.3); Mean Corpuscular Volume 88.9 fL (83.0-100.0); Mean Platelet Volume 10.3 fL (9.4-12.4); Monocytes # 0.7 K/mcL (0.0-1.3); Monocytes % 8.4 %; Neutrophils # 4.6 K/mcL (1.6-8.9); Platelet Count 292 K/mcL (140-400); Red Blood Count 4.61 M/mcL (3.82-4.97); Red Cell Distribution Width 13.2 % (11.5-14.5); Segmented Neutrophils % 55.4 %
[2017-06-14 21:16] LABS: Prothrombin Time 11.1 Seconds (9.4-12.1)
[2017-06-14 21:20] LABS: Magnesium 1.8 mg/dL (1.6-2.6)
[2017-06-14 21:25] LABS: BUN/Creatinine Ratio 18 (6-26); Blood Urea Nitrogen 15 mg/dL (7-20); Carbon Dioxide 22 mEq/L (19-29); Chloride 105 mEq/L (98-109); Glucose 210 mg/dL (70-99); Osmolality,Calculated 293 (280-300); Potassium 4.2 mEq/L (3.5-4.5); Sodium 138 mEq/L (136-145); eGFR For African Americans > 60 (> 60); eGFR For Non-African Americans > 60 (> 60)
[2017-06-14 21:48] LABS: Thyroid Stimulating Hormone 4.192 mcIU/mL (0.350-4.840)
[2017-06-15] MEDS ORDERED: Naloxone 0.4 MG/ML INJ IVP PRN (00:40)
[2017-06-15] MEDS ORDERED: *HR* Dextrose 50 % in Water (Syg) 50 ML SYRINGE IVP PRN (00:45)
[2017-06-15] MEDS ORDERED: D5% in Water 1,000 ML IVC PRN (00:45)
[2017-06-15] MEDS ORDERED: Dextrose Gel 15 GM PO PRN ×2 (00:45)
[2017-06-15] MEDS: 0.9 % Sodium Chloride 1,000 ML IVC SCH ×2 (01:22→12:00)
[2017-06-15] MEDS: Acetaminophen 325 MG TABLET PO PRN ×2 (01:29→19:19)
--- NOTE | 2017-06-15 05:40 | Internal Med History&Physical ---
Date of Encounter: 06/15/17 Time of Encounter: 03:00 Assessment and Plan (1) Sick sinus syndrome Current visit: Yes Status: Acute Patient was found pause on cardiac monitoring. Suspect sick sinus syndrome. - We will place patient on continuous cardiac monitoring. - We will hold beta jhonny per cardiology. - Plan for pacemaker placement per cardiology. (2) Diabetes type 2, controlled Current visit: No Status: Chronic Place patient on sliding-scale coverage Qualifiers: Diabetes mellitus complication status: without complication Diabetes mellitus detention insulin use: without detention use Qualified Code(s): E11.9 - Type 2 diabetes mellitus without complications (3) Atrial flutter Current visit: No Status: Chronic Will hold beta jhonny per cardiology recommendation. Qualifiers: Atrial flutter type: unspecified Qualified Code(s): I48.92 - Unspecified atrial flutter (4) DVT prophylaxis Current visit: No Status: Acute EPCD (5) Breast cancer Current visit: Yes Status: Acute Had the surgery. Continue home medication anastrozole Qualifiers: Breast location: unspecified site of breast Estrogen receptor status: unspecified Patient sex: female Laterality: right Qualified Code(s): C50.911 - Malignant neoplasm of unspecified site of right female breast Internal Medicine - H&P: HPI Chief complaint: Abnormal cardiac monitoring Admitted From: Home Plans for Post Hospital Care: Home History of present illness: Ms. Rojas is a 71 year old female with history of diabetes, A. fib, hypertension, hyperlipidemia, came to ER because she was called by cardiology who said she has pause on cardiac monitoring. Patient was discharged yesterday from hospital for syncope. She was placed on cardiac monitoring upon discharge. She was called by cardiology because they found abnormal monitoring. Patient denies chest pain, shortness of breath. She feels mild dizziness and nausea, no vomiting. Patient was admitted and the plan for pacemaker in a.m. Past Med Surg Social Fam HX - Past Medical History Medical history: diabetes, hypertension, other Psychiatric history: no psych history - Social History Smoking Status: Never smoker Smokeless Tobacco Status: No Alcohol use: none Drug use: none - Family History Father Living Status: Mother Living Status: Internal Medicine - H&P: Meds Cholecalciferol (Vitamin D3) [Vitamin D3] 2,000 unit PO DAILY 05/11/16 [History] Lactobacillus Combination No.8 [Adult Probiotic] 1 cap PO DAILY 05/11/16 [ History] Multivit-Min/FA/Lycopen/Lutein [Centrum Silver Tablet] 1 tab PO DAILY 05/11/16 [ History] Anastrozole [Arimidex] 1 mg PO DAILY 06/13/17 [History] Aspirin [Lo-Dose Aspirin EC] 81 mg PO DAILY 06/13/17 [History] Atorvastatin [Lipitor] 40 mg PO HS 06/13/17 [History] Fish Oil/Dha/Epa [Fish Oil 1,200 mg Fish Oil] 1 cap PO DAILY 06/13/17 [History] Lisinopril [Zestril] 10 mg PO DAILY 06/13/17 [History] metFORMIN [Glucophage] 500 mg PO BID 06/13/17 [History] Metoprolol [Lopressor] 75 mg PO BID 30 Days tablet 06/14/17 [Rx] 3 Allergy/AdvReac Type Severity Reaction Status Date / Time ciprofloxacin [From Cipro] Allergy unknown Verified 06/13/17 09:47 Sulfa (Sulfonamide Allergy unknown Verified 06/13/17 09:47 Antibiotics) nitrofurantoin AdvReac Mild Rash Verified 06/14/17 22:32 [From Macrobid] All Systems PM: A 10-system review of systems was performed and is negative for pertinent findings except as documented above in the HPI. - Constitutional Vitals: Temp Pulse Resp BP Pulse Ox 97.7 F 69 20 136/80 97 06/15/17 03:21 06/15/17 03:21 06/15/17 03:21 06/15/17 03:21 06/15/17 03:21 General appearance: Present: A&O X 3, no acute distress, answers questions appropriately - Head Head exam: Present: atraumatic, normocephalic - Eye Eye exam: Present: PERRL, conjuntiva pink, sclera anicteric Pupils: Present: PERRL - Neck Neck exam general surgery: Present: supple, trachea midline. Absent: lymphadenopathy - Respiratory Respiratory exam: Present: CTAB. Absent: accessory muscle use, rales, rhonchi, wheezes - Cardiovascular Cardiovascular exam: Present: RRR, +S1, +S2. Absent: diastolic murmur, gallop, rubs, systolic murmur - GI/Abdominal GI/Abdominal exam: Present: normal bowel sounds, soft, no peritoneal signs. Absent: distended, tenderness - Extremities Exam Extremities exam: Present: warm, radial pulses palpable and symmetrical. Absent : calf tenderness, cyanotic, pedal edema - Neurological Exam Neurological exam: Present: CN II-XII intact, oriented X3, no focal deficits. Absent: pronater drift, facial droop, speech deficit - Skin Skin exam: Present: dry, intact Internal Med - H&P Results - Labs CBC & Chem 7: 06/14/17 21:00 06/14/17 20:58 - EKG Data -: EKG Interpreted by Myself (A. fib) Rate: tachycardia
[2017-06-15 08:30] LABS: Basophils % 0.5 %; Eosinophils # 0.5 K/mcL (0.0-0.6); Eosinophils % 5.4 %; Hematocrit 39.5 % (35.3-44.9); Hemoglobin 12.6 g/dL (11.5-15.4); Immature Granulocytes % 0.4 % (0-4); Lymphocytes # 1.9 K/mcL (0.6-4.6); Lymphocytes % 22.6 %; Mean Corpuscular HGB Conc 31.9 g/dL (31.6-35.5); Mean Corpuscular Volume 90.8 fL (83.0-100.0); Mean Platelet Volume 10.3 fL (9.4-12.4); Monocytes # 0.6 K/mcL (0.0-1.3); Monocytes % 7.7 %; Neutrophils # 5.3 K/mcL (1.6-8.9); Platelet Count 259 K/mcL (140-400); Red Blood Count 4.35 M/mcL (3.82-4.97); Red Cell Distribution Width 13.2 % (11.5-14.5); Segmented Neutrophils % 63.4 %
[2017-06-15] MEDS: Insulin LISPRO 300 UNITS/3 ML VIAL SQ SCH ×4 (08:45→23:27)
[2017-06-15] MEDS: Anastrozole 1 MG TABLET PO SCH (08:57)
[2017-06-15] MEDS: Aspirin Enteric Coated 81 MG Tablet PO SCH (08:57)
[2017-06-15] MEDS: Lactobacillus 1 EACH CAP.SPRINK PO SCH (08:57)
--- NOTE | 2017-06-15 11:04 | Electrophysiology Consult Note ---
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 Paroxysmal A-Flutter as well. BB currently on hold, but presented in A-Flutter RVR HR 115. Currently SR. Symptoms of syncope and presyncope. Discussed with Dr. Rod Braga. Plan for PPM insertion today. Echo 06/13/17 EF 50%. Continue to follow. (2) Syncope Current Visit: No Status: Acute As above, likely secondary to pauses, as long as 5.5 seconds on event monitor. PPM today. Qualifiers: Syncope type: unspecified Qualified Code(s): R55 - Syncope and collapse (3) Atrial flutter Current Visit: Yes Status: Chronic Known paroxysmal atrial flutter. Tachy eugenio on event monitor. A-Flutter RVR rate 115 on admission. Currently SR. BB on hold given pause 5.5 seconds on event monitor. PPM today, then resume BB. Pt reports never seeing a joint setter. [id number] score is 3 (Age, HTN, Female). Not previously on anticoagulation. Recommend fpc anticoagulation to start 1 week after PPM insertion. Discussed Coumadin vs. NOACs. Pt prefers NOAC. Will fuentes check. Qualifiers: Atrial flutter type: unspecified Qualified Code(s): I48.92 - Unspecified atrial flutter Discussion w patient/family: The assessment and plan as outlined above was discussed with the patient and/or family members who expressed understanding and agreement. All questions were answered. Thank you for involving us in the care of your patient. Please call with any questions. I will discuss all the above with Dr. Rod Braga and make changes as necessary. History of Present Illness Consult date: 06/15/17 Requesting physician: Francis Dunham Consult reason: Pause on event monitor Chief complaint: syncope, presyncope History of present illness: Ms. Rojas is a 71 year old female with PMH of breast cancer, hypertension, diabetes, recurrent UTI and atrial flutter. She has been having presyncopal symptoms for the past 3 months, then this past Monday had a syncopal event. She was admitted, had a negative work-up and was discharged home yesterday with an event monitor. [employer] notified library sales consultant joint setter that pt's event monitor showed a 5.5 second pause, also evidence of tachy-eugenio syndrome, A- Flutter. Pt reports having known A-Flutter for extended period of time, but has never been seen by cardiology or anticoagulated. She reports occasional left chest "soreness" not worsened on exertion that resolves spontaneously. She denies dyspnea. Reports intermittent palpitations. EKG on admission showed A- Flutter RVR. She is currently SR. She was on Lopressor 50mg BID at home, held on admission. No significant pauses overnight. EP consulted for further recommendations. Recent CV testing: Echo 06/13/17 EF 50%, mild concentric LVH, mild MR and TR. Past Med Surg Social Fam HX - Past Medical History Medical history: diabetes, hypertension, other (Atrial Flutter) Psychiatric history: no psych history - Social History Smoking Status: Never smoker Smokeless Tobacco Status: No Alcohol use: none Drug use: none - Family History Father Living Status: Mother Living Status: Medications and Allergies Cholecalciferol (Vitamin D3) [Vitamin D3] 2,000 unit PO DAILY 05/11/16 [History] Lactobacillus Combination No.8 [Adult Probiotic] 1 cap PO DAILY 05/11/16 [ History] Multivit-Min/FA/Lycopen/Lutein [Centrum Silver Tablet] 1 tab PO DAILY 05/11/16 [ History] Anastrozole [Arimidex] 1 mg PO DAILY 06/13/17 [History] Aspirin [Lo-Dose Aspirin EC] 81 mg PO DAILY 06/13/17 [History] Atorvastatin [Lipitor] 40 mg PO HS 06/13/17 [History] Fish Oil/Dha/Epa [Fish Oil 1,200 mg Fish Oil] 1 cap PO DAILY 06/13/17 [History] Lisinopril [Zestril] 10 mg PO DAILY 06/13/17 [History] metFORMIN [Glucophage] 500 mg PO BID 06/13/17 [History] Metoprolol [Lopressor] 75 mg PO BID 30 Days tablet 06/14/17 [Rx] 3 Allergy/AdvReac Type Severity Reaction Status Date / Time ciprofloxacin [From Cipro] Allergy unknown Verified 06/13/17 09:47 Sulfa (Sulfonamide Allergy unknown Verified 06/13/17 09:47 Antibiotics) nitrofurantoin AdvReac Mild Rash Verified 06/14/17 22:32 [From Macrobid] All Systems Review: A 10-system review of systems was performed and is negative for pertinent findings except as documented above in the HPI. - Cardiovascular Cardiovascular: as per HPI, chest pain at rest, lightheadedness, palpitations, syncope - Neurological Neurological: dizziness, syncope Physical Examination Vital Signs, Last 4 Hours Pulse Ox 06/15/17 09:07 99 Vital Signs Temp Pulse Resp BP Pulse Ox 06/15/17 09:07 99 06/15/17 06:42 97.5 F L 64 16 143/84 99 06/15/17 03:21 97.7 F 69 20 136/80 97 06/14/17 23:04 98.5 F 117 18 160/88 95 06/14/17 22:25 20 114/84 06/14/17 21:32 96 18 144/118 95 06/14/17 21:17 140 12 131/99 97 06/14/17 20:31 98.1 F 128 18 149/106 95 Intake and Output 06/14/17 06/15/17 06/15/17 23:59 07:59 15:59 Intake Total 200 / 200 0 / 0 Output Total 0 / 0 Balance 200 / 200 0 / 0 Intake: IV Fluids 200 / 200 0.9 % Sodium Chloride 500 ML @ 200 / 200 1875 mls/hr IVC .Q16M ONE Rx#: [id number] Oral 0 / 0 Output: Urine 0 / 0 Other: Meal npo Percent of Meal Consumed 0% Weight 92.533 kg 91.9 kg Blood Glucose* 112 Patient Weight 06/15/17 23:59 Weight 91.9 kg General: Conversant HEENT: Atraumatic, Normocephaly, Mucus Membranes Moist Neck: No JVD, Normal carotid pulses Cardiac: Reg Rate and Rhythm, Normal S1 and S2, No Murmur Lungs: Normal Breath Sounds, No Wheeze, Rales, Rhonchi Neuro: Alert and responsive, No focal deficits noted Abdomen: Soft, Non-Tender Skin: No rashes noted on visualized skin Musculoskeletal: No Chest Wall Tenderness Extremities: No Clubbing, No Cyanosis, No Edema, Normal Pulses Results 06/15/17 07:36 06/14/17 20:58 Lab Results 06/15/17 07:36 WBC 8.3 Hgb 12.6 Hct 39.5 Plt Count 259 Short CBC 06/15/17 06/14/17 Range/Units 07:36 21:00 WBC 8.3 8.4 (4.3-11.1) K/mcL Hgb 12.6 13.4 (11.5-15.4) g/dL Hct 39.5 41.0 (35.3-44.9) % Plt Count 259 292 (140-400) K/mcL Neutrophils # 5.3 4.6 (1.6-8.9) K/mcL BMP 06/14/17 Range/Units 20:58 Sodium 138 (136-145) mEq/L Potassium 4.2 (3.5-4.5) mEq/L Chloride 105 (98-109) mEq/L Carbon Dioxide 22 (19-29) mEq/L BUN 15 (7-20) mg/dL Creatinine 0.82 (0.57-1.11) mg/dL Glucose 210 H (70-99) mg/dL Calcium 9.0 (8.6-10.8) mg/dL Cardiac Enzymes 06/14/17 Range/Units 20:58 Troponin I 0.00 (0-0.03) ng/mL Impressions Chest X-Ray 06/14/17 20:51 IMPRESSION: Streaky left basilar opacities most consistent with atelectasis given decreased inspiratory effort. D/ / Les Chong / Les Chong Interpreting Provider: Les Chong Active Medications Acetaminophen (Tylenol) 650 mg PO Q6HR PRN PRN Reason: Mild Pain (1-3) Stop: 12/15/17 00:41 Last Admin: 06/15/17 01:29 Dose: 650 mg Anastrozole (Arimidex) 1 mg PO DAILY [facility] Stop: 12/15/17 09:01 Last Admin: 06/15/17 08:57 Dose: 1 mg Aspirin (Aspirin Ec) 81 mg PO DAILY [facility] Stop: 12/15/17 09:01 Last Admin: 06/15/17 08:57 Dose: 81 mg Atorvastatin Calcium (Lipitor) 40 mg PO HS [facility] Stop: 12/15/17 21:01 Dextrose/Water (Dextrose 50% (Syg)) 25 ml IVP AD PRN PRN Reason: Hypoglycemia Stop: 12/15/17 00:46 Glucagon (Glucagen) 1 mg IM ONCE PRN PRN Reason: Hypoglycemia Stop: 12/15/17 00:46 Glucose (Gluctose) 15 gm PO ONCE PRN PRN Reason: Hypoglycemia Stop: 12/15/17 00:46 Glucose (Gluctose) 30 gm PO ONCE PRN PRN Reason: Hypoglycemia Stop: 12/15/17 00:46 Sodium Chloride (0.9 % Sodium Chloride) 1,000 mls @ 100 mls/hr IVC .Q10H [facility]HER Stop: 06/15/17 20:44 Last Admin: 06/15/17 01:22 Dose: 100 mls/hr Dextrose (Dextrose 5%) 1,000 mls @ 100 mls/hr IVC .Q10H PRN PRN Reason: HYPOGLYCEMIA Stop: 12/15/17 00:46 Insulin Human Lispro (Humalog) 0 units SQ Q6HR [facility]HER PRN Reason: Protocol Stop: 12/15/17 06:01 Last Admin: 06/15/17 08:45 Dose: Not Given Lactobacillus Acidophilus/Rhamnosus (Culturelle) 1 each PO DAILY [facility] Stop: 12/15/17 09:01 Last Admin: 06/15/17 08:57 Dose: 1 each Lisinopril (Zestril) 10 mg PO DAILY [facility] PRN Reason: Protocol Stop: 12/15/17 09:01 Last Admin: 06/15/17 08:57 Dose: 10 mg Naloxone HCl (Narcan) 0.4 mg IVP Q2MIN PRN PRN Reason: Opioid Reversal Stop: 12/15/17 00:41 - Imaging and Cardiology Echo: report reviewed - EKG Interpretation EKG results cardiology: personally reviewed (A-Flutter RVR HR 115), other (24 hr tele AVG HR 64, now SR, no significant pauses) Consult Discharge Plan - Plan Referrals: Clarita Henry MD [Primary Care Provider] - 06/20/17 11:00 am (WITH MANI FITCH) <Rod Braga - Last Filed: 06/15/17 15:05> Date of Encounter: 06/15/17 - Attending Attestation I have personally performed a face to face evaluation on this patient. I have reviewed and agree with the care plan. History and Exam by me shows: Tachy- eugenio syndrome. AF/AFL with 5 second pauses noted. Pt. has history of syncope. Assessment and Plan Discussion w patient/family: The assessment and plan as outlined above was discussed with the patient and/or family members who expressed understanding and agreement. All questions were answered. Thank you for involving us in the care of your patient. Please call with any questions. History of Present Illness History of present illness: Ms. Rojas is a 71 year old female All Systems Review: A 10-system review of systems was performed and is negative for pertinent findings except as documented above in the HPI. Physical Examination Vital Signs, Last 4 Hours Temp Pulse Resp BP Pulse Ox 06/15/17 11:06 97.7 F 70 17 164/83 97 Results 06/15/17 07:36 06/15/17 07:36 Lab Results 06/15/17 06/15/17 07:36 07:36 WBC 8.3 Hgb 12.6 Hct 39.5 Plt Count 259 Sodium 141 Potassium 4.4 Chloride 109 Carbon Dioxide 20 BUN 12 Creatinine 0.66 Glucose 113 H Calcium 9.2
[2017-06-15] MEDS ORDERED: CeFAZolin Syr 2,000MG/20 ML 2,000 MG/20 ML SYRINGE IVPB ONE (11:34)
[2017-06-15 12:57] LABS: BUN/Creatinine Ratio 18 (6-26); Blood Urea Nitrogen 12 mg/dL (7-20); Carbon Dioxide 20 mEq/L (19-29); Glucose 113 mg/dL (70-99); Osmolality,Calculated 293 (280-300); Sodium 141 mEq/L (136-145); eGFR For African Americans > 60 (> 60); eGFR For Non-African Americans > 60 (> 60)
[2017-06-15 13:00] LABS: Calcium 9.2 mg/dL (8.6-10.8); Chloride 109 mEq/L (98-109); Potassium 4.4 mEq/L (3.5-4.5)
[2017-06-15] MEDS ORDERED: CeFAZolin Premix DUPLEX 2,000 MG/50 ML BAG IVPB ONE (13:06)
[2017-06-15] MEDS ORDERED: ceFAZolin 2,000 MG in D5% in Water 100 ML IVPB ONE (13:08)
--- NOTE | 2017-06-15 15:56 | Pre-Sedation Evaluation ---
Pre-sedation evaluation - Pre-sedation checklist Date of procedure: 06/15/17 Procedure: pacemaker Recent Vitals: Last Vital Signs Temp 97.7 F 06/15/17 11:06 Pulse 70 06/15/17 11:06 Resp 17 06/15/17 11:06 BP 164/83 06/15/17 11:06 Pulse Ox 97 06/15/17 11:06 H&P (including ROS) documented in medical record: Yes Previous reaction to sedatives/anesthetics: No Dietary Status: NPO after Midnight Airway Assessment: Patient can open mouth completely, TMJ function normal, Micrognathia (under-bite, receding chin) absent Dentition: No loose teeth or bridges Possible difficult airway: No ASA Classification *see protocol: CLASS II-Mild systemic disease Plan of Care: Pt appropriate candidate for procedure/moderate/conscious sedation , Risks/benefits of procedure/sedation discussed w/ patient/family
[2017-06-15] MEDS ORDERED: Water for inj. (sterile) 10 ML IV ONE (16:07)
[2017-06-15] MEDS ORDERED: 0.9 % Sodium Chloride 500 ML ONE (16:07)
[2017-06-15] MEDS ORDERED: 0.9 % Sodium Chloride 1,000 ML ONE (16:08)
[2017-06-15] MEDS ORDERED: D5% in Water 0 ML ONE (16:14)
[2017-06-15] MEDS ORDERED: *HR* Midazolam HCl 2 MG/2 ML VIAL ONE (16:31)
[2017-06-15] MEDS ORDERED: *HR* FentaNYL (PF) 100 MCG/2 ML VIAL ONE (16:31)
--- NOTE | 2017-06-15 17:11 | Internal Med Progress Note ---
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 Qualifiers: Atrial flutter type: unspecified Qualified Code(s): I48.92 - Unspecified atrial flutter (5) Diabetes type 2, controlled Current Visit: No Status: Chronic Assessment and plan: on ISS resume PO meds in AM Qualifiers: Diabetes mellitus complication status: without complication Diabetes mellitus prison insulin use: without prison use Qualified Code(s): E11.9 - Type 2 diabetes mellitus without complications (6) Frequent UTI Current Visit: No Status: Chronic Assessment and plan: cont home med macrobid - Subjective Interval history: Ms. Rojas is a 71 year old female past medical history of right breast cancer hypertension diabetes recurrent UTI and atrial flutter who was admitted here 2 days ago for Syncope and d/c home by me with holter monitor. Pt did have few episodes of dizziness which associated with some pause / eugenio cardic spells on event monitor. Photographer'S Model did call back the pt to get admitted in the hospital for further care. Pt was evaluated by electophysiologist and scheduled for pacemaker today. She denied any CP / SOB now. - Constitutional Vitals: Temp Pulse Resp BP Pulse Ox 97.7 F 70 17 164/83 97 06/15/17 11:06 06/15/17 11:06 06/15/17 11:06 06/15/17 11:06 06/15/17 11:06 General appearance: Present: A&O X 3, no acute distress, answers questions appropriately - Head Head exam: Present: atraumatic, normal inspection - Neck Neck exam general surgery: Present: supple - Respiratory Respiratory exam: Present: decreased breath sounds. Absent: rales, respiratory distress, rhonchi, wheezes - Cardiovascular Cardiovascular exam: Present: RRR, +S1, +S2. Absent: systolic murmur - GI/Abdominal GI/Abdominal exam: Present: normal bowel sounds, soft. Absent: rebound, rigid, tenderness - Extremities Exam Extremities exam: Absent: calf tenderness, pedal edema, tenderness - Neurological Exam Neurological exam: Present: alert, oriented X3 - Psychiatric Psychiatric exam: Present: normal affect, normal mood Internal Medicine: Result - Labs CBC & Chem 7: 06/15/17 07:36 06/15/17 07:36 Labs: Short CBC 06/15/17 Range/Units 07:36 WBC 8.3 (4.3-11.1) K/mcL Hgb 12.6 (11.5-15.4) g/dL Hct 39.5 (35.3-44.9) % Plt Count 259 (140-400) K/mcL Neutrophils # 5.3 (1.6-8.9) K/mcL BMP 06/15/17 07:36 Sodium 141 Potassium 4.4 Chloride 109 Carbon Dioxide 20 BUN 12 Creatinine 0.66 Glucose 113 H Calcium 9.2 - ABG Interpretation ABG results: PT/INR, D-dimer PT 11.1 Seconds (9.4-12.1) 06/14/17 20:58 Consult Discharge Plan - Plan Referrals: Clarita Henry MD [Primary Care Provider] - 06/20/17 11:00 am (WITH MANI FITCH)
[2017-06-15] MEDS ORDERED: *HR* Morphine 2 MG/ML SYRINGE IVP PRN (17:25)
--- NOTE | 2017-06-15 18:05 | Electrocardiograph Report ---
[address] [place], [place] [address] Test Date: 2017-06-14 Pat Name: Deena Rojas Department: 103 Room: 2A44 Gender: F Radiation Therapy Technologist: : 1945 Requested By: Alessandra See Order Number: [id number] Reading MD: Nico Jerome MD Measurements Intervals [place] Rate: 119 P: DE: 0 QRS: 29 QRSD: 77 T: -37 QT: 287 QTc: 358 Interpretive Statements ATRIAL FIBRILLATION WITH RAPID VENTRICULAR RESPONSE Electronically Signed On 06-15-2017 18:04:02 EST by Nico Jerome MD
[2017-06-15] MEDS ORDERED: amLODIPine 5 MG TABLET PO ONE (19:08)
[2017-06-15] MEDS: CeFAZolin Premix DUPLEX 2,000 MG/50 ML BAG IVPB SCH (23:26)
[2017-06-16] MEDS: Insulin LISPRO 300 UNITS/3 ML VIAL SQ SCH ×5 (00:48→22:14)
[2017-06-16] MEDS: Aspirin Enteric Coated 81 MG Tablet PO SCH (07:42)
[2017-06-16] MEDS: Lactobacillus 1 EACH CAP.SPRINK PO SCH (07:43)
[2017-06-16] MEDS: Anastrozole 1 MG TABLET PO SCH (07:43)
[2017-06-16] MEDS: CeFAZolin Premix DUPLEX 2,000 MG/50 ML BAG IVPB SCH (09:36)
--- NOTE | 2017-06-16 10:16 | Electrophysiology ProgressNote ---
Date of Encounter: 06/16/17 Time of Encounter: 10:12 Assessment and Plan (1) Pacemaker Current Visit: Yes Status: Acute S/p PPM yesterday for tachy-eugenio and sinus pauses, paroxysmal A-Flutter. Device site healing well. Steri strips intact. No bleeding, hematoma or ecchymosis noted. Device check okay, CXR pending. Currently A-Flutter HR 110s. Increase Lopressor. As long as CXR is okay and pt becomes adequately rate controlled, can be d/c'd home. Will check back on HR early this afternoon. Outpt follow-up 7-10 days wound check, 4-6 weeks device check and [address] Rod ingram. (2) Tachy-eugenio syndrome Current Visit: Yes Status: Acute Event monitor showed evidence of tachy-eugenio and pause up to 5.5 seconds. Paroxysmal A-Flutter as well. s/p PPM yesterday, BB resumed. Currently A-flutter HR 110s. Increase Lopressor to 100mg BID. Symptoms of syncope and presyncope. Echo 06/13/17 EF 50%. (3) Syncope Current Visit: No Status: Acute As above, likely secondary to pauses, as long as 5.5 seconds on event monitor. S /P PPM yesterday. Qualifiers: Syncope type: unspecified Qualified Code(s): R55 - Syncope and collapse (4) Atrial flutter Current Visit: Yes Status: Chronic Known paroxysmal atrial flutter. Tachy eugenio on event monitor. A-Flutter RVR rate 115 on admission. Converted to SR, then back in A-Flutter this AM. BB resumed. Increase to 100mg BID. [id number] score is 3 (Age, HTN, Female). Not previously on anticoagulation. Recommend fdc anticoagulation to start 1 week after PPM insertion. Discussed Coumadin vs. NOACs. Pt prefers NOAC. Xarelto $0. Pt instructed to start next . Rx sent to pharmacy. Qualifiers: Atrial flutter type: unspecified Qualified Code(s): I48.92 - Unspecified atrial flutter (5) Chest pain Current Visit: Yes Status: Acute Intermittent chest pain--left sided soreness prior to admission, nonexertional. Troponin negative, no ischemic ekg changes. Recommend outpt stress test. No recent ischemic eval. Qualifiers: Chest pain type: unspecified Qualified Code(s): R07.9 - Chest pain, unspecified Discussion w patient/family: The assessment and plan as outlined above was discussed with the patient and/or family members who expressed understanding and agreement. All questions were answered. Thank you for involving us in the care of your patient. Please call with any questions. I will discuss all the above with Dr. Macias and make changes as necessary. Subjective Principal diagnosis: Pause, A-Flutter Interval history: S/P PPM yesterday. Reports soreness at device site, denies dyspnea. Device check okay. AM CXR pending. Pt was SR overnight, but A-Flutter currently. Objective Vital Signs, Last 4 Hours Temp Pulse Resp BP Pulse Ox 06/16/17 07:53 97.9 F 79 15 151/84 94 06/16/17 07:52 95 Vital Signs Temp Pulse Resp BP Pulse Ox 06/16/17 07:53 97.9 F 79 15 151/84 94 06/16/17 07:52 95 06/16/17 03:53 98.1 F 68 12 158/80 95 06/15/17 23:49 99.3 F 63 14 156/69 96 06/15/17 23:19 150/65 06/15/17 22:18 128/71 06/15/17 21:18 160/79 06/15/17 20:51 97.8 F 91 14 179/90 93 06/15/17 20:19 213/153 06/15/17 20:11 248/139 06/15/17 19:21 98.4 F 101 14 179/90 93 06/15/17 18:50 98.4 F 78 14 190/78 90 06/15/17 18:20 97.8 F 78 14 230/102 90 06/15/17 17:50 97.6 F 78 14 172/103 90 06/15/17 11:06 97.7 F 70 17 164/83 97 Intake and Output 06/15/17 06/16/17 06/16/17 23:59 07:59 15:59 Intake Total 50 / 50 Output Total 0 / 0 0 / 0 Balance 0 / 0 50 / 50 Intake: IV Fluids 50 / 50 Ancef Premix DUPLEX 2,000 mg In 50 / 50 50 ml @ 100 mls/hr IVPB Q8HR ESTHER Rx#:[id number] Output: Urine 0 / 0 0 / 0 Other: # Voids 1 Weight 93.2 kg Blood Glucose* 142 129 Patient Weight 06/16/17 23:59 Weight 93.2 kg General: Conversant, No Apparent Distress HEENT: Atraumatic, Normocephaly, Mucus Membranes Moist Neck: No JVD, Normal carotid pulses Cardiac: Other (irregular) Lungs: Normal Breath Sounds, No Wheeze, Rales, Rhonchi Neuro: Alert and responsive, No focal deficits noted Abdomen: Soft, Non-Tender Skin: No rashes noted on visualized skin Musculoskeletal: No Chest Wall Tenderness Extremities: No Clubbing, No Cyanosis, No Edema, Normal Pulses Results 06/15/17 07:36 06/15/17 07:36 BMP 06/15/17 Range/Units 07:36 Sodium 141 (136-145) mEq/L Potassium 4.4 (3.5-4.5) mEq/L Chloride 109 (98-109) mEq/L Carbon Dioxide 20 (19-29) mEq/L BUN 12 (7-20) mg/dL Creatinine 0.66 (0.57-1.11) mg/dL Glucose 113 H (70-99) mg/dL Calcium 9.2 (8.6-10.8) mg/dL Impressions Chest X-Ray 06/15/17 17:25 IMPRESSION: New left subclavian pacemaker appears in good position without evidence of pneumothorax. Mild perihilar vascular congestion noted without evidence of overt heart failure. Clinical correlation advised D/ / Ariel Avina MD / Ariel Avina MD Interpreting Provider: Ariel Avina MD Active Medications Acetaminophen (Tylenol) 650 mg PO Q6HR PRN PRN Reason: Mild Pain (1-3) Stop: 12/15/17 00:41 Last Admin: 06/15/17 19:19 Dose: 650 mg Anastrozole (Arimidex) 1 mg PO DAILY [facility] Stop: 12/15/17 09:01 Last Admin: 06/16/17 07:43 Dose: 1 mg Aspirin (Aspirin Ec) 81 mg PO DAILY [facility] Stop: 12/15/17 09:01 Last Admin: 06/16/17 07:42 Dose: 81 mg Atorvastatin Calcium (Lipitor) 40 mg PO HS [facility] Stop: 12/15/17 21:01 Last Admin: 06/15/17 20:23 Dose: 40 mg Dextrose/Water (Dextrose 50% (Syg)) 25 ml IVP AD PRN PRN Reason: Hypoglycemia Stop: 12/15/17 00:46 Enoxaparin Sodium (Lovenox) 40 mg SQ 0600 [facility] PRN Reason: Protocol Stop: 12/17/17 06:01 Glucagon (Glucagen) 1 mg IM ONCE PRN PRN Reason: Hypoglycemia Stop: 12/15/17 00:46 Glucose (Gluctose) 15 gm PO ONCE PRN PRN Reason: Hypoglycemia Stop: 12/15/17 00:46 Glucose (Gluctose) 30 gm PO ONCE PRN PRN Reason: Hypoglycemia Stop: 12/15/17 00:46 Hydralazine HCl (Hydralazine) 10 mg IVP Q4HR PRN PRN Reason: Hypertension Stop: 12/15/17 20:01 Last Admin: 06/15/17 19:17 Dose: 10 mg Dextrose (Dextrose 5%) 1,000 mls @ 100 mls/hr IVC .Q10H PRN PRN Reason: HYPOGLYCEMIA Stop: 12/15/17 00:46 Insulin Human Lispro (Humalog) 0 units SQ HS [facility] PRN Reason: Protocol Stop: 12/15/17 21:01 Last Admin: 06/15/17 23:27 Dose: Not Given Insulin Human Lispro (Humalog) 0 units SQ TIDAC [facility] PRN Reason: Protocol Stop: 12/15/17 18:10 Last Admin: 06/16/17 07:40 Dose: Not Given Lactobacillus Acidophilus/Rhamnosus (Culturelle) 1 each PO DAILY [facility] Stop: 12/15/17 09:01 Last Admin: 06/16/17 07:43 Dose: 1 each Lisinopril (Zestril) 10 mg PO DAILY [facility] PRN Reason: Protocol Stop: 12/15/17 09:01 Last Admin: 06/16/17 07:43 Dose: 10 mg Metoprolol Tartrate (Lopressor) 75 mg PO BID [facility] Stop: 12/15/17 21:01 Last Admin: 06/16/17 07:43 Dose: 75 mg Morphine Sulfate (Morphine Sulfate) 2 mg IVP Q4HR PRN PRN Reason: Severe Pain Stop: 12/15/17 17:26 Last Admin: 06/15/17 20:23 Dose: 2 mg Naloxone HCl (Narcan) 0.4 mg IVP Q2MIN PRN PRN Reason: Opioid Reversal Stop: 12/15/17 00:41 - Imaging and Cardiology Echo: report reviewed Consult Discharge Plan - Plan Instructions: Pacemaker (DC) Referrals: Clarita Henry MD [Primary Care Provider] - 06/20/17 11:00 am (WITH MANI FITCH)
[2017-06-16] MEDS ORDERED: *HR* Metoprolol 5 MG/5 ML VIAL IVP ONE (10:31)
[2017-06-16] MEDS ORDERED: dilTIAZem HCl 100 MG in D5% in Water 50 ML IVC SCH (12:30)
--- NOTE | 2017-06-16 17:10 | Internal Med Progress Note ---
Date of Encounter: 06/16/17 Time of Encounter: 17:07 - Assessment and plan (1) Syncope Current Visit: No Status: Acute Assessment and plan: due to trachy eugenio syndrome s/p PPM no more eugenio spells.. no more syncopal episodes Qualifiers: Syncope type: unspecified Qualified Code(s): R55 - Syncope and collapse (2) Tachy-eugenio syndrome Current Visit: Yes Status: Acute Assessment and plan: started on Metoprolol (3) Sick sinus syndrome Current Visit: Yes Status: Acute (4) Atrial flutter Current Visit: Yes Status: Chronic Assessment and plan: She is in RVR now Inc Metoprolol to 100mg BID also started on cardizem gtt Card suggested for anticoag after a week later Qualifiers: Atrial flutter type: unspecified Qualified Code(s): I48.92 - Unspecified atrial flutter (5) Diabetes type 2, controlled Current Visit: No Status: Chronic Assessment and plan: on ISS resume PO meds in AM Qualifiers: Diabetes mellitus complication status: without complication Diabetes mellitus termination clerk insulin use: without termination clerk use Qualified Code(s): E11.9 - Type 2 diabetes mellitus without complications (6) Frequent UTI Current Visit: No Status: Chronic Assessment and plan: cont home med macrobid - Subjective Interval history: Ms. Rojas is a 71 year old female past medical history of right breast cancer hypertension diabetes recurrent UTI and atrial flutter who was admitted here 2 days ago for Syncope and d/c home by me with holter monitor. Pt did have few episodes of dizziness which associated with some pause / eugenio cardic spells on event monitor. Horse Trekking Guide did call back the pt to get admitted in the hospital for further care. Pt was evaluated by electophysiologist and had PPM placed y/d. She denied any CP / SOB now. However still feeling dizzy on and off. Currently in atrial flutter with RVR. Started on Cardizem gtt. - Constitutional Vitals: Temp Pulse Resp BP Pulse Ox 99.3 F 90 14 161/91 94 06/16/17 15:32 06/16/17 15:32 06/16/17 15:32 06/16/17 15:32 06/16/17 15:32 General appearance: Present: A&O X 3, no acute distress, answers questions appropriately - Head Head exam: Present: atraumatic, normal inspection - Neck Neck exam general surgery: Present: supple - Respiratory Respiratory exam: Present: decreased breath sounds. Absent: rales, respiratory distress, rhonchi, wheezes - Cardiovascular Cardiovascular exam: Present: irregular rhythm, +S1, +S2, tachycardia - GI/Abdominal GI/Abdominal exam: Present: soft. Absent: rebound, rigid, tenderness - Extremities Exam Extremities exam: Absent: calf tenderness, pedal edema, tenderness - Neurological Exam Neurological exam: Present: alert, oriented X3 - Psychiatric Psychiatric exam: Present: normal affect, normal mood Internal Medicine: Result - Labs CBC & Chem 7: 06/15/17 07:36 06/15/17 07:36 - ABG Interpretation ABG results: PT/INR, D-dimer PT 11.1 Seconds (9.4-12.1) 06/14/17 20:58 - Impressions Impressions Chest X-Ray 06/15/17 17:25 IMPRESSION: New left subclavian pacemaker appears in good position without evidence of pneumothorax. Mild perihilar vascular congestion noted without evidence of overt heart failure. Clinical correlation advised D/ / Ariel Avina MD / Ariel Avina MD Interpreting Provider: Ariel Avina MD Chest X-Ray 06/16/17 06:00 IMPRESSION: No pneumothorax is identified. Cardiomegaly with mild vascular congestion and left basilar atelectasis. D/ / Sukumar Henley MD / Sukumar Henley MD Interpreting Provider: Sukumar Henley MD Consult Discharge Plan - Plan Instructions: Pacemaker (DC) Referrals: Clarita Henry MD [Primary Care Provider] - 06/20/17 11:00 am (WITH MANI FITCH)
--- NOTE | 2017-06-16 18:30 | Electrocardiograph Report ---
[address] [place], [place] [address] Test Date: 2017-06-16 Pat Name: Deena Rojas Department: 112 Room: 2A44 Gender: F Sap Grc Security: : 1945 Requested By: Francis Dunham Order Number: [id number] Reading MD: Nico Jerome MD Measurements Intervals [place] Rate: 93 P: [place]: 0 QRS: 53 QRSD: 85 T: 26 QT: 383 QTc: 434 Interpretive Statements ATRIAL FLUTTER/fibrillation Electronically Signed On 06-16-2017 18:29:08 EST by Nico Jerome MD
[2017-06-16] MEDS: Metoprolol 100 MG TABLET PO SCH (21:14)
[2017-06-16] MEDS: Acetaminophen 325 MG TABLET PO PRN (21:24)
[2017-06-17] MEDS ORDERED: *HR* Enoxaparin 40 MG/0.4 ML SYRINGE SQ SCH (06:00)
--- NOTE | 2017-06-17 08:24 | Cardiology Progress Note ---
Date of Encounter: 06/17/17 Time of Encounter: 08:23 Assessment and Plan (1) Atrial flutter Current Visit: Yes Status: Chronic Known paroxysmal atrial flutter. Tachy eugenio on event monitor. A-Flutter RVR rate 115 on admission. Converted to SR, then back in A-Flutter yesterday AM. BB increase to 100mg BID. Started Cardizem gtt yesterday. Achieved rate control overnight on cardizem gtt at 5mg/hr, but IV infiltrated this AM, gtt stopped at 0530 and HR currently 110s. Start PO Cardizem CD 120mg daily, continue Lopressor 100mg BID. [id number] score is 3 (Age, HTN, Female). Not previously on anticoagulation. Recommend admissions evaluator anticoagulation to start 1 week after PPM insertion. Discussed Coumadin vs. NOACs. Pt prefers NOAC. Xarelto $0. Pt instructed to start next . Rx sent to pharmacy. If rate controlled after PO meds given this AM, okay to be discharged home from cardiac standpoint. Qualifiers: Atrial flutter type: unspecified Qualified Code(s): I48.92 - Unspecified atrial flutter (2) Pacemaker Current Visit: Yes Status: Acute S/p PPM for tachy-eugenio and sinus pauses, paroxysmal A-Flutter. Device site healing well. Steri strips intact. No bleeding, hematoma or ecchymosis noted. Device check okay, CXR okay. Outpt follow-up 7-10 days wound check, 4-6 weeks device check and [address] Rod ingram. 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 Paroxysmal A-Flutter as well. s/p PPM, BB resumed. Symptoms of syncope and presyncope. Echo 06/13/17 EF 50%. (4) Syncope Current Visit: No Status: Acute As above, likely secondary to pauses, as long as 5.5 seconds on event monitor. S /P PPM. Qualifiers: Syncope type: unspecified Qualified Code(s): R55 - Syncope and collapse (5) Chest pain Current Visit: Yes Status: Acute Intermittent chest pain--left sided soreness prior to admission, nonexertional. Troponin negative, no ischemic ekg changes. Recommend outpt stress test. No recent ischemic eval. Qualifiers: Chest pain type: unspecified Qualified Code(s): R07.9 - Chest pain, unspecified Discussion w patient/family: The assessment and plan as outlined above was discussed with the patient and/or family members who expressed understanding and agreement. All questions were answered. Thank you for involving us in the care of your patient. Please call with any questions. I will discuss all the above with Dr. Macias and make changes as necessary. Subjective Principal diagnosis: Pause, A-Flutter Interval history: Pt reports feeling better this AM. Chest soreness improved. Denies dyspnea. Objective Vital Signs, Last 4 Hours Temp Pulse Resp BP Pulse Ox 06/17/17 07:16 98.5 F 111 18 135/88 93 06/17/17 04:51 98.3 F 100 16 108/71 96 Vital Signs Temp Pulse Resp BP Pulse Ox 06/17/17 07:16 98.5 F 111 18 135/88 93 06/17/17 04:51 98.3 F 100 16 108/71 96 06/17/17 00:25 98.4 F 92 16 137/85 96 06/16/17 19:48 98.7 F 82 18 120/80 94 06/16/17 15:32 99.3 F 90 14 161/91 94 06/16/17 12:04 97.9 F 103 15 163/85 97 Intake and Output 06/16/17 06/17/17 06/17/17 23:59 07:59 15:59 Intake Total 360 / 360 50 / 50 Output Total 1400 / 1400 Balance 359 / 359 -1350 / -1350 Intake: IV Fluids 50 / 50 Cardizem 100 MG In Dextrose 5% 50 / 50 (ADD-[place]) 50 ML @ 5 MG/HR 2 .5 mls/hr IVC .Q20H ESTHER Rx#: [id number] Oral 360 / 360 Output: Urine 1400 / 1400 Other: Meal No fluids given. Percent of Meal Consumed 100% Weight 92.986 kg Blood Glucose* 117 119 Patient Weight 06/17/17 23:59 Weight 92.986 kg General: Conversant, No Apparent Distress HEENT: Atraumatic, Normocephaly, Mucus Membranes Moist Neck: No JVD, Normal carotid pulses Cardiac: Other (irregular) Lungs: Normal Breath Sounds, No Wheeze, Rales, Rhonchi Neuro: Alert and responsive, No focal deficits noted Abdomen: Soft, Non-Tender Skin: Other (left chest steristrips intact, healing well. No bleeding, hematoma or ecchymosis noted.) Musculoskeletal: No Chest Wall Tenderness Extremities: No Clubbing, No Cyanosis, No Edema, Normal Pulses Results 06/15/17 07:36 06/15/17 07:36 Impressions Chest X-Ray 06/16/17 06:00 IMPRESSION: No pneumothorax is identified. Cardiomegaly with mild vascular congestion and left basilar atelectasis. D/ / Sukumar Henley MD / Sukumar Henley MD Interpreting Provider: Sukumar Henley MD Active Medications Acetaminophen (Tylenol) 650 mg PO Q6HR PRN PRN Reason: Mild Pain (1-3) Stop: 12/15/17 00:41 Last Admin: 06/16/17 21:24 Dose: 650 mg Anastrozole (Arimidex) 1 mg PO DAILY [facility] Stop: 12/15/17 09:01 Last Admin: 06/16/17 07:43 Dose: 1 mg Aspirin (Aspirin Ec) 81 mg PO DAILY [facility] Stop: 12/15/17 09:01 Last Admin: 06/16/17 07:42 Dose: 81 mg Atorvastatin Calcium (Lipitor) 40 mg PO HS ESTHER Stop: 12/15/17 21:01 Last Admin: 06/16/17 21:14 Dose: 40 mg Dextrose/Water (Dextrose 50% (Syg)) 25 ml IVP AD PRN PRN Reason: Hypoglycemia Stop: 12/15/17 00:46 Diltiazem HCl (Cardizem Cd) 120 mg PO DAILY [facility] Stop: 12/17/17 09:01 Enoxaparin Sodium (Lovenox) 40 mg SQ 0600 ESTHER PRN Reason: Protocol Stop: 12/17/17 06:01 Last Admin: 06/17/17 05:46 Dose: 40 mg Glucagon (Glucagen) 1 mg IM ONCE PRN PRN Reason: Hypoglycemia Stop: 12/15/17 00:46 Glucose (Gluctose) 15 gm PO ONCE PRN PRN Reason: Hypoglycemia Stop: 12/15/17 00:46 Glucose (Gluctose) 30 gm PO ONCE PRN PRN Reason: Hypoglycemia Stop: 12/15/17 00:46 Hydralazine HCl (Hydralazine) 10 mg IVP Q4HR PRN PRN Reason: Hypertension Stop: 12/15/17 20:01 Last Admin: 06/15/17 19:17 Dose: 10 mg Dextrose (Dextrose 5%) 1,000 mls @ 100 mls/hr IVC .Q10H PRN PRN Reason: HYPOGLYCEMIA Stop: 12/15/17 00:46 Insulin Human Lispro (Humalog) 0 units SQ HS ESTHER PRN Reason: Protocol Stop: 12/15/17 21:01 Last Admin: 06/16/17 22:14 Dose: Not Given Insulin Human Lispro (Humalog) 0 units SQ TIDAC ESTHER PRN Reason: Protocol Stop: 12/15/17 18:10 Last Admin: 06/16/17 16:48 Dose: Not Given Lactobacillus Acidophilus/Rhamnosus (Culturelle) 1 each PO DAILY [facility] Stop: 12/15/17 09:01 Last Admin: 06/16/17 07:43 Dose: 1 each Lisinopril (Zestril) 10 mg PO DAILY ESTHER PRN Reason: Protocol Stop: 12/15/17 09:01 Last Admin: 06/16/17 07:43 Dose: 10 mg Metoprolol Tartrate (Lopressor) 100 mg PO BID [facility] Stop: 12/16/17 21:01 Last Admin: 06/16/17 21:14 Dose: 100 mg Morphine Sulfate (Morphine Sulfate) 2 mg IVP Q4HR PRN PRN Reason: Severe Pain Stop: 12/15/17 17:26 Last Admin: 06/15/17 20:23 Dose: 2 mg Naloxone HCl (Narcan) 0.4 mg IVP Q2MIN PRN PRN Reason: Opioid Reversal Stop: 12/15/17 00:41 - Imaging and Cardiology Echo: report reviewed - EKG Interpretation EKG results cardiology: other (12 hr tele AVG HR 97, A-Flutter) Consult Discharge Plan - Plan Instructions: Pacemaker (DC) Additional Instructions: ACTIVITY: Moderate activity for the next 7 days. No lifting more than 5 pounds ( gallon of milk) for 4-6 weeks. Avoid lifting your arm on the same side as the device for 4 weeks. BATHING /SHOWERING: Do not remove the large bandage over the site for 2 days. Do not allow the device to get wet for 7-10 days. You may bathe/shower, but do not use soap and water on the site. When bathing, keep the site dry by covering with Saran wrap or a towel. WOUND CARE: The white steri-strips will start to peel away and come off after 14 days, or your doctor will remove them after [address] anything into or on top of the incision. Do not use cotton swabs. Do not use any antibiotic ointment or Vitamin E on the site. REMINDERS: You may use electrical devices, such as, microwaves, hair dryers, electric razors, electric blankets, etc. as long as they are in good condition and kept 6 -8 inches away from the device. It is recommended to use cell phones on the opposite side of your device. Notify security personnel at the airport that you have a device before you go through airport security screening. When at places with security monitors, such as a grocery store, do not linger near these monitors. It is fine to walk past them in a normal manner. Refer to your owners manual for more specific directions. CARRY YOUR PACEMAKER/ICD CARD WITH YOU AT ALL TIMES Return to work as instructed per physician Resume driving as instructed per physician Keep all scheduled follow up appointments Resume medications as instructed Contact [facility] ( ) if: You develop excessive bleeding from insertion or wound site not controlled by applying pressure You develop a fever greater than 101 degrees Fahrenheit Your incision becomes reddened at or around the site Your incision develops yellowish or greenish drainage or development of white pimple-like bumps You experience excessive pain You develop swelling in your ankles You experience muscle switching You develop excessive hiccupping If you experience chest pain, shortness of breath, dizziness, or extreme tiredness, stop the activity and rest. Please notify [facility] office if you experience any of these symptoms and they are not relieved by rest please call 911! Referrals: Clarita Henry MD [Primary Care Provider] - 06/20/17 11:00 am (WITH MANI FITCH)
[2017-06-17] MEDS: Insulin LISPRO 300 UNITS/3 ML VIAL SQ SCH ×2 (08:32→12:41)
[2017-06-17] MEDS: Aspirin Enteric Coated 81 MG Tablet PO SCH (08:39)
[2017-06-17] MEDS: Metoprolol 100 MG TABLET PO SCH (08:39)
[2017-06-17] MEDS: Lactobacillus 1 EACH CAP.SPRINK PO SCH (08:39)
[2017-06-17] MEDS: Anastrozole 1 MG TABLET PO SCH (08:39)
[2017-06-17] MEDS ORDERED: Diltiazem CD (24hr) 120 MG CAPSULE PO SCH (09:00)
[2017-06-17 11:32] VITALS: BP 128/74
--- NOTE | 2017-06-17 12:04 | Discharge Summary ---
Date of Encounter: 06/17/17 Time of Encounter: 12:01 - Discharge Diagnosis (1) Syncope Priority: Primary Status: Acute Qualifiers: Syncope type: unspecified Qualified Code(s): R55 - Syncope and collapse (2) Tachy-eugenio syndrome Priority: Primary Status: Acute (3) Sick sinus syndrome Priority: Primary Status: Acute (4) Atrial flutter Priority: Secondary Status: Chronic Qualifiers: Atrial flutter type: unspecified Qualified Code(s): I48.92 - Unspecified atrial flutter (5) Diabetes type 2, controlled Priority: Secondary Status: Chronic Qualifiers: Diabetes mellitus complication status: without complication Diabetes mellitus watermelon inspector insulin use: without watermelon inspector use Qualified Code(s): E11.9 - Type 2 diabetes mellitus without complications (6) Frequent UTI Priority: Secondary Status: Chronic - Discharge Medications Prescriptions: Diltiazem CD (24hr) [Cardizem CD] 120 mg PO DAILY #30 cap.er.24h HYDROcodone/Acet 5/325 mg [[place] 5-325 mg] 1 tab PO Q6H PRN #10 tab PRN Reason: Pain Metoprolol [Lopressor] 100 mg PO BID #60 tablet Home Medications: Cholecalciferol (Vitamin D3) [Vitamin D3] 2,000 unit PO DAILY 05/11/16 [History] Lactobacillus Combination No.8 [Adult Probiotic] 1 cap PO DAILY 05/11/16 [ History] Multivit-Min/FA/Lycopen/Lutein [Centrum Silver Tablet] 1 tab PO DAILY 05/11/16 [ History] Anastrozole [Arimidex] 1 mg PO DAILY 06/13/17 [History] Aspirin [Lo-Dose Aspirin EC] 81 mg PO DAILY 06/13/17 [History] Atorvastatin [Lipitor] 40 mg PO HS 06/13/17 [History] Fish Oil/Dha/Epa [Fish Oil 1,200 mg Fish Oil] 1 cap PO DAILY 06/13/17 [History] metFORMIN [Glucophage] 500 mg PO BID 06/13/17 [History] Diltiazem CD (24hr) [Cardizem CD] 120 mg PO DAILY #30 cap.er.24h 06/17/17 [Rx] HYDROcodone/Acet 5/325 mg [[place] 5-325 mg] 1 tab PO Q6H PRN #10 tab 11/18/17 [Rx ] Metoprolol [Lopressor] 100 mg PO BID #60 tablet 06/17/17 [Rx] Allergies/Adverse Reactions: 3 Allergy/AdvReac Type Severity Reaction Status Date / Time ciprofloxacin [From Cipro] Allergy unknown Verified 06/13/17 09:47 Sulfa (Sulfonamide Allergy unknown Verified 06/13/17 09:47 Antibiotics) nitrofurantoin AdvReac Mild Rash Verified 06/14/17 22:32 [From Macrobid] Procedures/tests Complete & Pending: Procedures Performed prior 72 hours Category Date Time Status EKG [ECG 12 lead ECG] [ECG] Stat Y 06/16/17 05:38 Completed Date of admission: 06/15/17 17:20 Primary care physician: Clarita Henry - Patient Status Disposition: Home, Self-Care Condition: Good Overall status at discharge: patient is back to baseline - Discharge Instructions Instructions: Pacemaker (DC) Follow Up With: Clarita Henry MD [Primary Care Provider] - 06/20/17 11:00 am (WITH MANI FITCH) Rod Braga MD [Partnered Physician] - Additional Instructions: ACTIVITY: Moderate activity for the next 7 days. No lifting more than 5 pounds ( gallon of milk) for 4-6 weeks. Avoid lifting your arm on the same side as the device for 4 weeks. BATHING /SHOWERING: Do not remove the large bandage over the site for 2 days. Do not allow the device to get wet for 7-10 days. You may bathe/shower, but do not use soap and water on the site. When bathing, keep the site dry by covering with Saran wrap or a towel. WOUND CARE: The white steri-strips will start to peel away and come off after 14 days, or your doctor will remove them after [address] anything into or on top of the incision. Do not use cotton swabs. Do not use any antibiotic ointment or Vitamin E on the site. REMINDERS: You may use electrical devices, such as, microwaves, hair dryers, electric razors, electric blankets, etc. as long as they are in good condition and kept 6 -8 inches away from the device. It is recommended to use cell phones on the opposite side of your device. Notify security personnel at the airport that you have a device before you go through airport security screening. When at places with security monitors, such as a grocery store, do not linger near these monitors. It is fine to walk past them in a normal manner. Refer to your owners manual for more specific directions. CARRY YOUR PACEMAKER/ICD CARD WITH YOU AT ALL TIMES Return to work as instructed per physician Resume driving as instructed per physician Keep all scheduled follow up appointments Resume medications as instructed Contact [facility] ( ) if: You develop excessive bleeding from insertion or wound site not controlled by applying pressure You develop a fever greater than 101 degrees Fahrenheit Your incision becomes reddened at or around the site Your incision develops yellowish or greenish drainage or development of white pimple-like bumps You experience excessive pain You develop swelling in your ankles You experience muscle switching You develop excessive hiccupping If you experience chest pain, shortness of breath, dizziness, or extreme tiredness, stop the activity and rest. Please notify [facility] office if you experience any of these symptoms and they are not relieved by rest please call 911! - Diet and Activity Activity: increase activity as tolerated Diet: low salt diet Hospital course: Ms. Rojas is a 71 year old female past medical history of right breast cancer hypertension diabetes recurrent UTI and atrial flutter who was admitted here 2 days ago for Syncope and d/c home by me with holter monitor. Pt did have few episodes of dizziness which associated with some pause / eugenio cardic spells on event monitor. Voltage Tester did call back the pt to get admitted in the hospital for further care. Pt was evaluated by electophysiologist and had PPM placed on 06/15/17. Since then pt does not have any syncopal episodes. However she did go in and out Atrial flutter with RVR, so started on Cardizem gtt last night, as well inc her Metoprolol to 100mg BID. Now she is in NSR, Rate controlled with PO Cardizem + Metoprolol. So will d/c home in stable condition today. For her paroxysmal Atrial flutter Card recommend to start taking anti coag Xarelto one week from PPM placement. Pt does aware of this and her Rx already sent to her pharmacy by Cardiology. - Time Spent with Patient Total time spent providing and/or coordinating discharge services: - Constitutional Vitals: Temp Pulse Resp BP Pulse Ox 98.1 F 83 17 128/74 94 06/17/17 11:25 06/17/17 11:25 06/17/17 11:25 06/17/17 11:25 06/17/17 11:25 General appearance: Present: A&O X 3, no acute distress, answers questions appropriately - Head Head exam: Present: atraumatic, normal inspection - Respiratory Respiratory exam: Present: decreased breath sounds. Absent: rales, respiratory distress, rhonchi, wheezes - Cardiovascular Cardiovascular exam: Present: RRR, +S1, +S2. Absent: systolic murmur, tachycardia - GI/Abdominal GI/Abdominal exam: Present: normal bowel sounds, soft. Absent: rebound, rigid, tenderness - Extremities Exam Extremities exam: Absent: calf tenderness, pedal edema, tenderness Additional comments: Mild swelling and tenderness over Left wrist for IV line infiltration. - Neurological Exam Neurological exam: Present: alert, oriented X3 - Psychiatric Psychiatric exam: Present: normal affect, normal mood
== END 2017-06-17 12:45 | disposition home or self-care (01) | DRG 243 ==
LOC: 2ANU 20:23 → EMEROO 20:23 → 2ANU 22:35
PROVIDERS: ADMIT Internal Medicine; ATTEND Family Medicine

== ENCOUNTER 2017-10-09 08:59 | Inpatient (IN) ==
[2017-10-09 10:30] LABS: Basophils % 0.5 %; Eosinophils # 0.2 K/mcL (0.0-0.6); Eosinophils % 2.1 %; Hematocrit 35.8 % (35.3-44.9); Hemoglobin 11.2 g/dL (11.5-15.4); Immature Granulocytes % 0.4 % (0-4); Immature Platelets 2.6 % (1.1-6.1); Lymphocytes # 2.5 K/mcL (0.6-4.6); Lymphocytes % 29.1 %; Mean Corpuscular HGB Conc 31.3 g/dL (31.6-35.5); Mean Corpuscular Hemoglobin 27.7 pg (28.0-33.3); Mean Corpuscular Volume 88.4 fL (83.0-100.0); Monocytes # 0.9 K/mcL (0.0-1.3); Monocytes % 10.5 %; Neutrophils # 4.8 K/mcL (1.6-8.9); Platelet Count 313 K/mcL (140-400); Red Blood Count 4.05 M/mcL (3.82-4.97); Red Cell Distribution Width 13.1 % (11.5-14.5); Segmented Neutrophils % 57.4 %
[2017-10-09 11:07] LABS: BUN/Creatinine Ratio 23 (6-26); Blood Urea Nitrogen 17 mg/dL (8-23); Calcium 9.1 mg/dL (8.6-10.3); Carbon Dioxide 27 mEq/L (23-29); Chloride 106 mEq/L (98-107); Glucose 139 mg/dL (70-105); Osmolality,Calculated 290 (280-300); Potassium 4.7 mEq/L (3.5-5.1); Sodium 138 mEq/L (136-145); eGFR For African Americans > 60 (> 60); eGFR For Non-African Americans > 60 (> 60)
--- NOTE | 2017-10-09 12:09 | Cardiology History & Physical ---
<Aibodun Cohen R - Last Filed: 10/09/17 12:07> Date of Encounter: 10/09/17 Time of Encounter: 12:09 Assessment and Plan (1) Atrial flutter Current Visit: No Status: Chronic Paroxysmal A-Fib/Flutter. Symptomatic--exertional dyspnea, significant fatigue. Pt reports daily episodes of A-Fib. Currently SR, paced. DCCV attempted 09/12/17 as outpt. Was unsuccessful. Planned to be admitted for antiarrhythmic initiation--Sotalol 80mg BID. Also on Cardizem CD 120mg daily and Lopressor 100mg BID. Continue for now. Anticoagulated on Eliquis. Denies any missed doses in the past 30 days. TTE 05/2017 EF 50%, mild MR and TR. Moderate-severely dilated left atrium. Continuous telemetry while inpt. Obtain baseline EKG. CBC and BMP obtained. Normal renal function. H&H stable. Will need monitored for 5 Sotalol doses with daily EKGs to monitor QTc. I will discuss and review all the above with Dr. Boo and make changes as necessary. Will staff with EP tomorrow. Qualifiers: Atrial flutter type: unspecified Qualified Code(s): I48.92 - Unspecified atrial flutter (2) Pacemaker Current Visit: No Status: Acute PPM in place, follows with device clinic. (3) Obesity (BMI 30-39.9) Current Visit: Yes Status: Acute Lifestyle modification needed. (4) Pneumonia Current Visit: Yes Status: Acute Obtained CXR given complaint of dyspnea. Shows early RLL PNA. Afebrile, normal WBC. Consulted hospitalist for further recommendations. Discussed with Dr. Mackenzie. Qualifiers: Pneumonia type: due to unspecified organism Laterality: right Lung location: lower lobe of lung Qualified Code(s): J18.1 - Lobar pneumonia, unspecified organism (5) Lower extremity edema Current Visit: Yes Status: Acute Reports BLE edema is new over the past week. Denies excessive Na or fluid intake. TTE 05/2017 EF 50%. Will recheck limited TTE. (6) Diabetes type 2, controlled Current Visit: Yes Status: Chronic Continue Metformin as inpt. Qualifiers: Diabetes mellitus residential insulin use: without long chain beamer use Diabetes mellitus complication status: without complication Qualified Code(s): E11.9 - Type 2 diabetes mellitus without complications History of Present Illness Chief complaint: fatigue, dyspnea HPI: Ms. Rojas is a 72 year old female with PMH of Breast Ca., HTN, DM II, HTN, A -Fib/flutter, sick sinus syndrome diagnosed after a syncopal event with Pacemaker placed on 06/15/2017. She continues to have symptoms of fatigue and exertional dyspnea and reported daily episodes of PAF. She denies chest pain. She reports BLE edema worsening over the past week. She underwent attempted DCCV as outpt, reportedly unsuccessful, and presents today as a direct admission for Sotalol initiation--80mg BID. Currently SR, paced. CXR obtained-- impression of early RLL PNA. TTE 06/13/2017: LVEF 50%. Normal LV, RV size and function. Mild concentric LVH. Mild MR, TR. No PHTN. Device interogation 07/13/2017: Pacemaker Implant, 06/15/17. 59 Mode switches recent 07/13/17 for 3 hours 10 minutes 47 seconds Max (A) > 400 bpm & (V) 150 bpm. Battery Longevity 12.7 years. Past Med Surg Social Fam HX - Past Medical History Medical history: atrial fibrillation, cancer, diabetes, hyperlipidemia, hypertension, other Psychiatric history: no psych history - Past Surgical History Surgical History: breast surgery, hysterectomy, orthopedic, other, pacemaker - Social History Smoking Status: Never smoker Smokeless Tobacco Status: No Alcohol use: none Drug use: none - Family History Father Living Status: Mother Living Status: Medications and Allergies Cholecalciferol (Vitamin D3) [Vitamin D3] 2,000 unit PO DAILY 05/11/16 [History] Lactobacillus Combination No.8 [Adult Probiotic] 1 cap PO DAILY 05/11/16 [ History] Multivit-Min/FA/Lycopen/Lutein [Centrum Silver Tablet] 1 tab PO DAILY 05/11/16 [ History] Anastrozole [Arimidex] 1 mg PO DAILY 06/13/17 [History] Atorvastatin [Lipitor] 40 mg PO HS 06/13/17 [History] Fish Oil/Dha/Epa [Fish Oil 1,200 mg Fish Oil] 1 cap PO DAILY 06/13/17 [History] Diltiazem CD (24hr) [Cardizem CD] 120 mg PO DAILY #30 cap.er.24h 06/17/17 [Rx] Metoprolol [Lopressor] 100 mg PO BID #60 tablet 06/17/17 [Rx] Metformin HCl [Fortamet] 500 mg PO BIDWM 09/12/17 [History] Apixaban [Eliquis] 5 mg PO BID 10/09/17 [History] Aspirin [Lo-Dose Aspirin EC] 81 mg PO DAILY 10/09/17 [History] Ubidecarenone [Coq10] 50 mg PO DAILY 10/09/17 [History] 3 Allergy/AdvReac Type Severity Reaction Status Date / Time nitrofurantoin Allergy Mild Rash Verified 10/09/17 11:00 [From Macrobid] Sulfa (Sulfonamide Allergy Rash Verified 10/09/17 11:00 Antibiotics) ciprofloxacin [From Cipro] AdvReac HEEL PAIN Verified 10/09/17 11:00 All Systems Review: The remainder of the systems were reviewed and are negative - Constitutional Constitutional: fatigue - Cardiovascular Cardiovascular: as per HPI, dyspnea on exertion, leg edema - Respiratory Respiratory: dyspnea Physical Examination Vital Signs, Last 4 Hours Temp Pulse Resp BP Pulse Ox 10/09/17 09:54 97.9 F 60 16 144/91 93 10/09/17 09:49 93 Vital Signs Temp Pulse Resp BP Pulse Ox 10/09/17 12:06 98.1 F 60 16 140/93 92 10/09/17 09:54 97.9 F 60 16 144/91 93 10/09/17 09:49 93 Intake and Output 10/08/17 10/09/17 10/09/17 23:59 07:59 15:59 Other: Weight 96.3 kg Blood Glucose* 94 Patient Weight 10/09/17 23:59 Weight 96.3 kg General: Conversant, No Apparent Distress HEENT: Atraumatic, Normocephaly, Mucus Membranes Moist Neck: No JVD, Normal carotid pulses Cardiac: Reg Rate and Rhythm, Normal S1 and S2, No Murmur Lungs: Normal Breath Sounds, No Wheeze, Rales, Rhonchi Neuro: Alert and responsive, No focal deficits noted Abdomen: Soft, Non-Tender Skin: No rashes noted on visualized skin Musculoskeletal: No Chest Wall Tenderness Extremities: Other (mild-moderate BLE edema) Results 10/09/17 10:16 03/12/18 10:16 Lab Results 10/09/17 10/09/17 10:16 10:16 WBC 8.4 Hgb 11.2 L Hct 35.8 Plt Count 313 Sodium 138 Potassium 4.7 Chloride 106 Carbon Dioxide 27 BUN 17 Creatinine 0.73 Glucose 139 H Calcium 9.1 Short CBC 10/09/17 Range/Units 10:16 WBC 8.4 (4.3-11.1) K/mcL Hgb 11.2 L (11.5-15.4) g/dL Hct 35.8 (35.3-44.9) % Plt Count 313 (140-400) K/mcL Neutrophils # 4.8 (1.6-8.9) K/mcL BMP 10/09/17 Range/Units 10:16 Sodium 138 (136-145) mEq/L Potassium 4.7 (3.5-5.1) mEq/L Chloride 106 (98-107) mEq/L Carbon Dioxide 27 (23-29) mEq/L BUN 17 (8-23) mg/dL Creatinine 0.73 (0.60-1.20) mg/dL Glucose 139 H (70-105) mg/dL Calcium 9.1 (8.6-10.3) mg/dL Impressions Chest X-Ray 10/09/17 10:05 IMPRESSION: Early right lower lobe pneumonia. D/ / Yasmani Mendoza MD / Yasmani Mendoza MD Interpreting Provider: Yasmani Mendoza MD Active Medications Anastrozole (Arimidex) 1 mg PO DAILY ESTHER Stop: 04/11/18 09:01 Apixaban (Eliquis) 5 mg PO BID ESTHER Stop: 04/10/18 21:01 Atorvastatin Calcium (Lipitor) 40 mg PO HS ESTHER Stop: 04/10/18 21:01 Diltiazem HCl (Cardizem Cd) 120 mg PO DAILY ESTHER Stop: 04/11/18 09:01 Lactobacillus Acidophilus/Rhamnosus (Culturelle) 1 each PO DAILY ESTHER Stop: 04/11/18 09:01 Metformin HCl (Glucophage) 500 mg PO BIDWM ESTHER Stop: 04/10/18 17:01 Metoprolol Tartrate (Lopressor) 100 mg PO BID ESTHER Stop: 04/10/18 21:01 Multivitamins/Calcium (Thera M Plus) 1 tab PO DAILY ESTHER Stop: 04/11/18 09:01 Pharmacy Profile Note (Patient Taking Own Medication) 0 each PO DAILY ESTHER Stop: 04/11/18 09:01 Pharmacy Profile Note (Patient Taking Own Medication) 0 each PO DAILY ESTHER Stop: 04/11/18 09:01 Sotalol HCl (Betapace) 80 mg PO Q12H ESTHER Stop: 04/10/18 10:16 Last Admin: 10/09/17 11:19 Dose: 80 mg Vitamin D (Vitamin D) 1,000 unit PO DAILY ESTHER Stop: 04/11/18 09:01 - Imaging and Cardiology Echo: report reviewed - VTE Reasons for not Prescribing Prophylaxis: Not indicated-Anticoagulated or INR therapeutic <Jenny Boo - Last Filed: 10/10/17 09:00> Date of Encounter: 10/10/17 - Attending Attestation 72 YOF with multiple CRFs EF 50% with PAF s/p PPM now in sinus rythm started on Sotalol 80mg BID with serial EKGs for monitoring. Currenly asymptomatic tolerating well. Presents with symptoms of SOB and LE edema intially. No RWMA on echo, no chest pain, orthopnea or PND. Consider outpatient ischemia work up with NST. History of Present Illness HPI: Ms. Rojas is a 72 year old female All Systems Review: The remainder of the systems were reviewed and are negative Physical Examination Vital Signs, Last 4 Hours Temp Pulse Resp BP Pulse Ox 10/10/17 07:54 97.6 F 64 16 158/97 98 Results 10/09/17 10:16 10/10/17 05:43 Lab Results 10/09/17 10/09/17 10/10/17 10:16 10:16 05:43 WBC 8.4 Hgb 11.2 L Hct 35.8 Plt Count 313 Sodium 138 137 Potassium 4.7 3.8 Chloride 106 100 Carbon Dioxide 27 29 BUN 17 15 Creatinine 0.73 0.69 Glucose 139 H 111 H Calcium 9.1 9.1 Magnesium 1.6
--- NOTE | 2017-10-09 14:24 | Internal Medicine Consult Note ---
Date of Encounter: 10/09/17 Time of Encounter: 14:21 - Assessment and Plan (1) Dyspnea on exertion Current Visit: Yes Status: Acute Assessment and plan: Given her history, and her chest x-ray, I suspect this is probably heart failure. I have recommended to dose of Lasix, I have called the project technician nurse practitioner with this. I do not hear picture of pneumonia with her history, nor [place] convinced that her chest x-ray is consistent with pneumonia. I will have the hospitalist team check on her tomorrow, we will hold any antibiotics at this time. (2) Diabetes type 2, controlled Current Visit: Yes Status: Chronic Qualifiers: Diabetes mellitus moth exterminator insulin use: without correction use Diabetes mellitus complication status: without complication Qualified Code(s): E11.9 - Type 2 diabetes mellitus without complications (3) Atrial flutter Current Visit: No Status: Chronic Assessment and plan: Her rate is controlled, currently in the hospital for conversion with sotalol. Qualifiers: Atrial flutter type: unspecified Qualified Code(s): I48.92 - Unspecified atrial flutter (4) Hypertension Current Visit: No Status: Chronic Qualifiers: Hypertension type: essential hypertension Qualified Code(s): I10 - Essential (primary) hypertension Internal Medicine - CN: HPI - Data of Consult Patient: new to practice Consult date: 10/09/17 Requesting Physician: Rod Braga, - Consult Narrative Reason for consult: Pneumonia on x-ray. History of present illness: Ms. Rojas is a 72 year old female brought in by the cardiology team, for what may be sotalol therapy for conversion of atrial fibrillation. She reports a 2 week course of progressive dyspnea, with orthopnea. She is also appreciated some pedal edema, and roughly a cold pound weight gain in the last month. She has had minimal dry cough, but has had progressive exertional dyspnea that been fairly significant. No fever, no chills. Past Med Surg Social Fam HX - Past Medical History Medical history: atrial fibrillation, cancer, diabetes, hyperlipidemia, hypertension, other Psychiatric history: no psych history - Past Surgical History Surgical History: breast surgery, hysterectomy, orthopedic, other, pacemaker - Social History Smoking Status: Never smoker Smokeless Tobacco Status: No Alcohol use: none Drug use: none - Family History Father Living Status: Mother Living Status: - Constitutional Constitutional: fatigue, weight gain, no anorexia, no chills, no fever(s), no falls - Cardiovascular Cardiovascular ROS IM: dyspnea on exertion, edema, irregular heart rhythm, orthopnea, no chest pain, no claudication, no diaphoresis, no palpitations - Respiratory Respiratory: cough, dyspnea on exertion, no wheezing Additional comments: This cough is nonproductive - Gastrointestinal Gastrointestinal: no abdominal pain, no bloating, no diarrhea, no early satiety , no melena, no nausea, no vomiting - Neurological Neurological ROS: no loss of vision, no memory loss Internal Medicine - CN: Meds Cholecalciferol (Vitamin D3) [Vitamin D3] 2,000 unit PO DAILY 05/11/16 [History] Lactobacillus Combination No.8 [Adult Probiotic] 1 cap PO DAILY 05/11/16 [ History] Multivit-Min/FA/Lycopen/Lutein [Centrum Silver Tablet] 1 tab PO DAILY 05/11/16 [ History] Anastrozole [Arimidex] 1 mg PO DAILY 06/13/17 [History] Atorvastatin [Lipitor] 40 mg PO HS 06/13/17 [History] Fish Oil/Dha/Epa [Fish Oil 1,200 mg Fish Oil] 1 cap PO DAILY 06/13/17 [History] Diltiazem CD (24hr) [Cardizem CD] 120 mg PO DAILY #30 cap.er.24h 06/17/17 [Rx] Metoprolol [Lopressor] 100 mg PO BID #60 tablet 06/17/17 [Rx] Metformin HCl [Fortamet] 500 mg PO BIDWM 09/12/17 [History] Apixaban [Eliquis] 5 mg PO BID 10/09/17 [History] Aspirin [Lo-Dose Aspirin EC] 81 mg PO DAILY 10/09/17 [History] Ubidecarenone [Coq10] 50 mg PO DAILY 10/09/17 [History] 3 Allergy/AdvReac Type Severity Reaction Status Date / Time nitrofurantoin Allergy Mild Rash Verified 10/09/17 11:00 [From Macrobid] Sulfa (Sulfonamide Allergy Rash Verified 10/09/17 11:00 Antibiotics) ciprofloxacin [From Cipro] AdvReac HEEL PAIN Verified 10/09/17 11:00 Internal Medicine - CN: Exam - Constitutional Vitals: Temp Pulse Resp BP Pulse Ox 98.1 F 60 16 140/93 92 10/09/17 12:06 10/09/17 12:06 10/09/17 12:06 10/09/17 12:06 10/09/17 12:06 General appearance IM: Present: A&O X 3, no acute distress, answers questions appropriately - Head Head exam: Present: atraumatic - Neck Neck exam general surgery: Present: full ROM, supple, trachea midline Additional comments: Minimal JVD with hepatic pressure - Respiratory Additional comments: Basilar rales, minimal bronchus CHANGE right base. No tachypnea. - Cardiovascular Cardiovascular exam IM: Present: irregular rhythm, JVD, +S1, +S2. Absent: gallop, systolic murmur, tachycardia - GI/Abdominal GI/Abdominal exam IM: Present: normal bowel sounds, soft, no peritoneal signs - Extremities Exam Extremities exam IM: Present: pedal edema Internal Medicine - CN: Reslt - Labs CBC & Chem 7: 10/09/17 10:16 10/09/17 10:16 Labs: Short CBC 10/09/17 Range/Units 10:16 WBC 8.4 (4.3-11.1) K/mcL Hgb 11.2 L (11.5-15.4) g/dL Hct 35.8 (35.3-44.9) % Plt Count 313 (140-400) K/mcL Neutrophils # 4.8 (1.6-8.9) K/mcL BMP 10/09/17 10:16 Sodium 138 Potassium 4.7 Chloride 106 Carbon Dioxide 27 BUN 17 Creatinine 0.73 Glucose 139 H Calcium 9.1 - Impressions Impressions Chest X-Ray 10/09/17 10:05 IMPRESSION: Early right lower lobe pneumonia. D/ / Yasmani Mendoza MD / Yasmani Mendoza MD Interpreting Provider: Yasmani Mendoza MD Consult Discharge Plan - Plan Referrals: Clarita Henry MD [Primary Care Provider] -
[2017-10-09] MEDS: *HR* Metformin 500 MG TABLET PO SCH (15:45)
[2017-10-09] MEDS: Furosemide 20 MG/2 ML VIAL IVP SCH ×2 (15:45→22:13)
--- NOTE | 2017-10-09 20:43 | Electrocardiograph Report ---
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
[2017-10-09] MEDS: Metoprolol 100 MG TABLET PO SCH (22:13)
[2017-10-09] MEDS: Apixaban 5 MG TABLET PO SCH (22:13)
[2017-10-10 06:26] LABS: BUN/Creatinine Ratio 22 (6-26); Blood Urea Nitrogen 15 mg/dL (8-23); Calcium 9.1 mg/dL (8.6-10.3); Carbon Dioxide 29 mEq/L (23-29); Chloride 100 mEq/L (98-107); Glucose 111 mg/dL (70-105); Magnesium 1.6 mg/dL (1.6-2.6); Osmolality,Calculated 286 (280-300); Potassium 3.8 mEq/L (3.5-5.1); Sodium 137 mEq/L (136-145); eGFR For African Americans > 60 (> 60); eGFR For Non-African Americans > 60 (> 60)
--- NOTE | 2017-10-10 07:38 | Internal Med Progress Note ---
Date of Encounter: 10/10/17 Time of Encounter: 07:46 - Assessment and plan (1) Atrial flutter Current Visit: No Status: Chronic Assessment and plan: Paroxysmal A-Fib/Flutter; Patient had exertional dyspnea, significant fatigue Pt reports daily episodes of A-Fib. Currently SR, paced. DCCV attempted 09/12/17 as outpt. Was unsuccessful. Planned to be admitted for antiarrhythmic initiation: Sotalol 80mg BID Plan: -Continuous telemetry -Cardiac diet -Eliquis 5 mg PO BID -Cardizem CD 120 mg PO daily -Lopressor 100 mg PO BID -Sotalol 80 mg PO Q12 Qualifiers: Atrial flutter type: unspecified Qualified Code(s): I48.92 - Unspecified atrial flutter (2) Pneumonia Current Visit: Yes Status: Acute Assessment and plan: -Obtained CXR given complaint of dyspnea -Shows early RLL PNA Qualifiers: Pneumonia type: due to unspecified organism Laterality: right Lung location: lower lobe of lung Qualified Code(s): J18.1 - Lobar pneumonia, unspecified organism (3) Lower extremity edema Current Visit: Yes Status: Acute Assessment and plan: TTE 05/2017 EF 50%, mild MR and TR. Moderate-severely dilated left atrium. -Reports BLE edema is new over the past week -Denies excessive Na or fluid intake -TTE 05/2017 EF 50% -Will recheck limited TTE (4) Pacemaker Current Visit: No Status: Acute Assessment and plan: -PPM in place, follows with device clinic (5) Diabetes type 2, controlled Current Visit: Yes Status: Chronic Assessment and plan: -Continue Metformin as inpt. Qualifiers: Diabetes mellitus retirement insulin use: without watermaster use Diabetes mellitus complication status: without complication Qualified Code(s): E11.9 - Type 2 diabetes mellitus without complications - Subjective Interval history: Patient is 72-year-old female. History of atrial fibrillation/flutter, sick sinus syndrome diagnosed after a syncopal event with pacemaker placed on . Patient continued to have symptoms of fatigue and exertional dyspnea. Reported daily episodes of PAF. Reported having bilateral lower extremity edema worsening over the last week. Underwent attempted DC CV as an outpatient , which was reportedly unsuccessful. She presented to the hospital as a direct admission for sotalol initiation, 80 mg twice a day. Chest x-ray demonstrated impression of early right lower lobe pneumonia. Patient was seen and examined at bedside this morning. - Constitutional Vitals: Temp Pulse Resp BP Pulse Ox 98 F 59 18 148/64 97 10/10/17 04:00 10/10/17 04:00 10/10/17 04:00 10/10/17 04:00 10/10/17 04:00 General appearance: Present: A&O X 3, no acute distress, answers questions appropriately - Head Head exam: Present: atraumatic, normocephalic - Eye Eye exam: Present: PERRL, conjuntiva pink, sclera anicteric Pupils: Present: PERRL - Neck Neck exam general surgery: Present: supple, trachea midline. Absent: lymphadenopathy - Respiratory Respiratory exam: Present: CTAB. Absent: accessory muscle use, rales, rhonchi, wheezes - Cardiovascular Cardiovascular exam: Present: RRR, +S1, +S2. Absent: diastolic murmur, gallop, rubs, systolic murmur - GI/Abdominal GI/Abdominal exam: Present: normal bowel sounds, soft, no peritoneal signs. Absent: distended, tenderness - Extremities Exam Extremities exam: Present: warm, radial pulses palpable and symmetrical. Absent : calf tenderness, cyanotic, pedal edema - Neurological Exam Neurological exam: Present: CN II-XII intact, oriented X3, no focal deficits. Absent: pronater drift, facial droop, speech deficit - Skin Skin exam: Present: dry, intact Internal Medicine: Result - Labs CBC & Chem 7: 10/09/17 10:16 10/10/17 05:43 Labs: Short CBC 10/09/17 Range/Units 10:16 WBC 8.4 (4.3-11.1) K/mcL Hgb 11.2 L (11.5-15.4) g/dL Hct 35.8 (35.3-44.9) % Plt Count 313 (140-400) K/mcL Neutrophils # 4.8 (1.6-8.9) K/mcL BMP 10/09/17 10/10/17 10:16 05:43 Sodium 138 137 Potassium 4.7 3.8 Chloride 106 100 Carbon Dioxide 27 29 BUN 17 15 Creatinine 0.73 0.69 Glucose 139 H 111 H Calcium 9.1 9.1 - Impressions Impressions Chest X-Ray 10/09/17 10:05 IMPRESSION: Early right lower lobe pneumonia. D/ / Yasmani Mendoza MD / Yasmani Mendoza MD Interpreting Provider: Yasmani Mendoza MD - VTE Reasons for not Prescribing Prophylaxis: Not indicated-Anticoagulated or INR therapeutic Consult Discharge Plan - Plan Referrals: Clarita Henry MD [Primary Care Provider] -
[2017-10-10] MEDS: (Ubidecarenone [Coq10] 50 MG) PO SCH (08:25)
[2017-10-10] MEDS: *HR* Metformin 500 MG TABLET PO SCH ×2 (08:25→15:29)
[2017-10-10] MEDS: (Fish Oil/Dha/Epa [Fish Oil 1,200 Mg Fish Oil] 1 CAP) PO SCH (08:25)
[2017-10-10] MEDS: Lactobacillus 1 EACH CAP.SPRINK PO SCH (08:25)
[2017-10-10] MEDS: Anastrozole 1 MG TABLET PO SCH (08:25)
[2017-10-10] MEDS: Cholecalciferol (D-3) 1,000 UNIT TABLET PO SCH (08:25)
[2017-10-10] MEDS: Metoprolol 100 MG TABLET PO SCH (08:25)
[2017-10-10] MEDS: Apixaban 5 MG TABLET PO SCH ×2 (08:25→22:10)
[2017-10-10] MEDS: Multivit/Ca/Min/Fe/FA 1 TAB TABLET PO SCH (08:25)
[2017-10-10] MEDS: Diltiazem CD (24hr) 120 MG CAPSULE PO SCH (08:25)
[2017-10-10] MEDS: Furosemide 20 MG/2 ML VIAL IVP SCH ×2 (08:25→22:10)
--- NOTE | 2017-10-10 09:24 | Electrophysiology ProgressNote ---
Date of Encounter: 10/10/17 Time of Encounter: 09:22 Assessment and Plan (1) Atrial flutter Current Visit: No Status: Chronic Paroxysmal A-Fib/Flutter. Symptomatic--exertional dyspnea, significant fatigue. Pt reports daily episodes of A-Fib. Currently SR, paced. DCCV attempted 09/12/17 as outpt unsuccessful. Admitted for antiarrhythmic initiation--Sotalol 80mg BID. Also on Cardizem CD 120mg daily and Lopressor 100mg BID. Will decrease Lopressor to 50mg BID. Anticoagulated on Eliquis. Denies any missed doses in the past 30 days. Limited TTE EF 55%, severely dilated LA. Continuous telemetry while inpt. Has maintained SR during stay. Baseline EKG 10/09/17 1033 SR Paced, HR 60, QT/QTc 449/449ms. EKG s/p 2 doses 10/10/17 0607 SR Paced, HR 62, QT/QTc 490/495ms. Given increase in QT/QTc, will decrease Sotalol dose to 40mg BID. Discussed with Dr. Rod Braga. Will need monitored for 5 Sotalol doses with daily EKGs to monitor QTc. Tentative d/c tomorrow. I will discuss and review all the above with Dr. Rod Braga and make changes as necessary. Qualifiers: Atrial flutter type: unspecified Qualified Code(s): I48.92 - Unspecified atrial flutter (2) Pacemaker Current Visit: No Status: Acute PPM in place, follows with device clinic. (3) Obesity (BMI 30-39.9) Current Visit: Yes Status: Acute Lifestyle modification needed. (4) Diabetes type 2, controlled Current Visit: Yes Status: Chronic Continue Metformin as inpt. Qualifiers: Diabetes mellitus tank terminal gauger insulin use: without tank terminal gauger use Diabetes mellitus complication status: without complication Qualified Code(s): E11.9 - Type 2 diabetes mellitus without complications (5) Acute diastolic (congestive) heart failure Current Visit: Yes Status: Acute Worsening dyspnea and LE edema over recent weeks, also ten pound weight gain in the past month. CXR shows possible early RLL PNA. Evaluated by hospitalist, thought to be CHF, not PNA. Started on IV diuresis--Lasix 20mg BID. Dyspnea and LE edema have improved. Limited TTE EF 55%. Will continue IV diuresis as inpt and transition to PO Lasix at d/c. Strict I/Os, Na and fluid restriction, daily weights. Of note, down 2kg since starting IV diuresis yesterday. Discussion w patient/family: The assessment and plan as outlined above was discussed with the patient and/or family members who expressed understanding and agreement. All questions were answered. Thank you for involving us in the care of your patient. Please call with any questions. I will discuss all the above with Dr. Rod Braga and make changes as necessary. Subjective Principal diagnosis: PAF Interval history: Maintaining SR. Hospitalist saw pt yesterday due to CXR findings, thought to be pulmonary edema, not PNA. Was started on IV Lasix yesterday 20mg BID. Reports feeling much better this AM. Dyspnea and LE edema have improved. Limited TTE shows EF remains preserved 55%, severely dilated LA. EKG reviewed and QTc has increased from 449ms to 495ms. Objective Vital Signs, Last 4 Hours Temp Pulse Resp BP Pulse Ox 10/10/17 07:54 97.6 F 64 16 158/97 98 Vital Signs Temp Pulse Resp BP Pulse Ox 10/10/17 07:54 97.6 F 64 16 158/97 98 10/10/17 04:00 98 F 59 18 148/64 97 10/10/17 00:00 98.2 F 59 18 143/77 91 10/09/17 22:35 91 10/09/17 20:00 98.2 F 64 18 132/71 91 10/09/17 15:50 97.7 F 60 16 153/100 97 10/09/17 12:06 98.1 F 60 16 140/93 92 10/09/17 09:54 97.9 F 60 16 144/91 93 10/09/17 09:49 93 Intake and Output 10/09/17 10/10/17 10/10/17 23:59 07:59 15:59 Intake Total 240 / 240 480 / 480 Balance 240 / 240 480 / 480 Intake: Oral 240 / 240 480 / 480 Other: Meal Breakfast Percent of Meal Consumed 100% # Voids 3 # Urine Diapers 2 Weight 94.6 kg Blood Glucose* 142 127 Patient Weight 10/10/17 23:59 Weight 94.6 kg General: Conversant, No Apparent Distress HEENT: Atraumatic, Normocephaly, Mucus Membranes Moist Neck: No JVD, Normal carotid pulses Cardiac: Reg Rate and Rhythm, Normal S1 and S2, No Murmur Lungs: Normal Breath Sounds, No Wheeze, Rales, Rhonchi Neuro: Alert and responsive, No focal deficits noted Abdomen: Soft, Non-Tender Skin: No rashes noted on visualized skin Musculoskeletal: No Chest Wall Tenderness Extremities: Other (mild BLE edema) Results 10/09/17 10:16 10/10/17 05:43 Lab Results 10/09/17 10/09/17 10/10/17 10:16 10:16 05:43 WBC 8.4 Hgb 11.2 L Hct 35.8 Plt Count 313 Sodium 138 137 Potassium 4.7 3.8 Chloride 106 100 Carbon Dioxide 27 29 BUN 17 15 Creatinine 0.73 0.69 Glucose 139 H 111 H Calcium 9.1 9.1 Magnesium 1.6 Short CBC 10/09/17 Range/Units 10:16 WBC 8.4 (4.3-11.1) K/mcL Hgb 11.2 L (11.5-15.4) g/dL Hct 35.8 (35.3-44.9) % Plt Count 313 (140-400) K/mcL Neutrophils # 4.8 (1.6-8.9) K/mcL BMP 10/10/17 10/09/17 Range/Units 05:43 10:16 Sodium 137 138 (136-145) mEq/L Potassium 3.8 4.7 (3.5-5.1) mEq/L Chloride 100 106 (98-107) mEq/L Carbon Dioxide 29 27 (23-29) mEq/L BUN 15 17 (8-23) mg/dL Creatinine 0.69 0.73 (0.60-1.20) mg/dL Glucose 111 H 139 H (70-105) mg/dL Calcium 9.1 9.1 (8.6-10.3) mg/dL Impressions Chest X-Ray 10/09/17 10:05 IMPRESSION: Early right lower lobe pneumonia. D/ / Yasmani Mendoza MD / Yasmani Mendoza MD Interpreting Provider: Yasmani Mendoza MD Echocardiogram Limited Views 10/09/17 13:32 Impressions: LVEF 55%. Normal right ventricular structure and function. Left Ventricular Wall Motion: Rest Echo Findings All wall segments showed normal motion. Findings: Study Quality * Technically adequate exam. ECG Findings * Normal sinus rhythm. Left Ventricle * LVEF 55%. * Normal LV chamber size, wall thickness and function. Right Ventricle * Normal right ventricular structure and function. Aorta * Normally sized aortic root. Pericardium * There is no pericardial effusion present. Left Atrium * Severely dilated left atrium. Right Atrium * Mildly dilated right atrium. Active Medications Anastrozole (Arimidex) 1 mg PO DAILY ESTHER Stop: 04/11/18 09:01 Last Admin: 10/10/17 08:25 Dose: 1 mg Apixaban (Eliquis) 5 mg PO BID ESTHER Stop: 04/10/18 21:01 Last Admin: 10/10/17 08:25 Dose: 5 mg Atorvastatin Calcium (Lipitor) 40 mg PO HS ESTHER Stop: 04/10/18 21:01 Last Admin: 10/09/17 22:13 Dose: 40 mg Diltiazem HCl (Cardizem Cd) 120 mg PO DAILY ESTHER Stop: 04/11/18 09:01 Last Admin: 10/10/17 08:25 Dose: 120 mg Furosemide (Lasix) 20 mg IVP BID ESTHER Stop: 04/10/18 14:16 Last Admin: 10/10/17 08:25 Dose: 20 mg Lactobacillus Acidophilus/Rhamnosus (Culturelle) 1 each PO DAILY ESTHER Stop: 04/11/18 09:01 Last Admin: 10/10/17 08:25 Dose: 1 each Metformin HCl (Glucophage) 500 mg PO BIDWM ESTHER Stop: 04/10/18 17:01 Last Admin: 10/10/17 08:25 Dose: 500 mg Metoprolol Tartrate (Lopressor) 50 mg PO BID ESTHER Stop: 04/11/18 21:01 Multivitamins/Calcium (Thera M Plus) 1 tab PO DAILY ESTHER Stop: 04/11/18 09:01 Last Admin: 10/10/17 08:25 Dose: 1 tab Pharmacy Profile Note (Patient Taking Own Medication) 0 each PO DAILY ESTHER Stop: 04/11/18 09:01 Last Admin: 10/10/17 08:25 Dose: Not Given Pharmacy Profile Note (Patient Taking Own Medication) 0 each PO DAILY ESTEHR Stop: 04/11/18 09:01 Last Admin: 10/10/17 08:25 Dose: Not Given Sotalol HCl (Betapace) 40 mg PO Q12H [facility] Stop: 04/11/18 09:21 Vitamin D (Vitamin D) 1,000 unit PO DAILY [facility] Stop: 04/11/18 09:01 Last Admin: 10/10/17 08:25 Dose: 1,000 unit - Imaging and Cardiology Echo: report reviewed - EKG Interpretation EKG results cardiology: personally reviewed (Paced, SR, QTc 495ms.), other (12 hr tele AVG HR 61, SR, paced) - VTE Reasons for not Prescribing Prophylaxis: Not indicated-Anticoagulated or INR therapeutic Consult Discharge Plan - Plan Referrals: Clarita Henry MD [Primary Care Provider] -
--- NOTE | 2017-10-10 10:43 | Internal Med Progress Note ---
Date of Encounter: 10/10/17 Time of Encounter: 10:42 - Assessment and plan (1) Hypertension Current Visit: Yes Status: Chronic Assessment and plan: continue current management Qualifiers: Hypertension type: essential hypertension Qualified Code(s): I10 - Essential (primary) hypertension (2) Diabetes type 2, controlled Current Visit: Yes Status: Chronic Assessment and plan: continue metformin, renal function is stable Qualifiers: Diabetes mellitus termite exterminator helper insulin use: without detention use Diabetes mellitus complication status: without complication Qualified Code(s): E11.9 - Type 2 diabetes mellitus without complications (3) Atrial flutter Current Visit: Yes Status: Acute Assessment and plan: management per cardio Qualifiers: Atrial flutter type: unspecified Qualified Code(s): I48.92 - Unspecified atrial flutter (4) Dyspnea on exertion Current Visit: Yes Status: Acute Assessment and plan: due to CHF, continue management per cardio (5) Pneumonia Current Visit: Yes Status: Suspected Assessment and plan: suspected due to chest xray findings, no indication for antibiotics at this time ,as patient has no symptoms of pneumonia, continue to monitor Qualifiers: Pneumonia type: due to unspecified organism Laterality: right Lung location: lower lobe of lung Qualified Code(s): J18.1 - Lobar pneumonia, unspecified organism - Subjective Interval history: Seen and evaluated at bedside Admitted by cardiology for management of atrial flutter and acute diastolic CHF. Medicine was consulted for concerns for pneumonia. The patient denies any productive cough, she has no fever. - Constitutional Vitals: Temp Pulse Resp BP Pulse Ox 97.6 F 64 16 158/97 98 10/10/17 07:54 10/10/17 07:54 10/10/17 07:54 10/10/17 07:54 10/10/17 07:54 General appearance: Present: A&O X 3, no acute distress, answers questions appropriately - Head Head exam: Present: atraumatic, normocephalic - Eye Eye exam: Present: PERRL, conjuntiva pink, sclera anicteric Pupils: Present: PERRL - Neck Neck exam general surgery: Present: supple, trachea midline. Absent: lymphadenopathy - Respiratory Respiratory exam: Present: CTAB. Absent: accessory muscle use, rales, rhonchi, wheezes - Cardiovascular Cardiovascular exam: Present: RRR, +S1, +S2. Absent: diastolic murmur, gallop, rubs, systolic murmur - GI/Abdominal GI/Abdominal exam: Present: normal bowel sounds, soft, no peritoneal signs. Absent: distended, tenderness - Extremities Exam Extremities exam: Present: warm, radial pulses palpable and symmetrical. Absent : calf tenderness, cyanotic, pedal edema - Neurological Exam Neurological exam: Present: alert, CN II-XII intact, oriented X3, no focal deficits. Absent: pronater drift, facial droop, speech deficit - Skin Skin exam: Present: dry, intact Internal Medicine: Result - Labs CBC & Chem 7: 10/09/17 10:16 10/10/17 05:43 Labs: BMP 10/09/17 10/10/17 10:16 05:43 Sodium 138 137 Potassium 4.7 3.8 Chloride 106 100 Carbon Dioxide 27 29 BUN 17 15 Creatinine 0.73 0.69 Glucose 139 H 111 H Calcium 9.1 9.1 - Impressions Impressions Chest X-Ray 10/09/17 10:05 IMPRESSION: Early right lower lobe pneumonia. D/ / Yasmani Mendoza MD / Yasmani Mendoza MD Interpreting Provider: Yasmani Mendoza MD Echocardiogram Limited Views 10/09/17 13:32 Impressions: LVEF 55%. Normal right ventricular structure and function. Left Ventricular Wall Motion: Rest Echo Findings All wall segments showed normal motion. Findings: Study Quality * Technically adequate exam. ECG Findings * Normal sinus rhythm. Left Ventricle * LVEF 55%. * Normal LV chamber size, wall thickness and function. Right Ventricle * Normal right ventricular structure and function. Aorta * Normally sized aortic root. Pericardium * There is no pericardial effusion present. Left Atrium * Severely dilated left atrium. Right Atrium * Mildly dilated right atrium. - VTE Reasons for not Prescribing Prophylaxis: Not indicated-Anticoagulated or INR therapeutic Consult Discharge Plan - Plan Referrals: Clarita Henry MD [Primary Care Provider] -
--- NOTE | 2017-10-10 17:54 | Electrocardiograph Report ---
[place] [id number] Test Date: 2017-10-10 Pat Name: Deena Rojas Department: 111 Room: 2NE32 Gender: Exercise Physiologist Certified: JOSE : 1945 Requested By: Abiodun Cohen Order Number: [id number] Reading MD: Chasidy Macias Measurements Intervals [place] Rate: 62 P: 121 UT: 176 QRS: 38 QRSD: 84 T: 16 QT: 490 QTc: 495 Interpretive Statements ELECTRONIC ATRIAL PACEMAKER MODERATE VOLTAGE CRITERIA FOR LVH, CONSIDER NORMAL VARIANT PROLONGED QT INTERVAL Electronically Signed On 10-10-2017 17:52:38 EDT by Chasidy Macias
[2017-10-10] MEDS: Acetaminophen 325 MG TABLET PO SCH (22:45)
[2017-10-11] MEDS ORDERED: Regadenoson 0.4 MG/5 ML SYRINGE IVP ONE (06:48)
[2017-10-11] MEDS: *HR* Metformin 500 MG TABLET PO SCH ×2 (09:23→15:50)
[2017-10-11] MEDS: Lactobacillus 1 EACH CAP.SPRINK PO SCH (09:23)
[2017-10-11] MEDS: Diltiazem CD (24hr) 120 MG CAPSULE PO SCH (09:23)
[2017-10-11] MEDS: Multivit/Ca/Min/Fe/FA 1 TAB TABLET PO SCH (09:23)
[2017-10-11] MEDS: Apixaban 5 MG TABLET PO SCH ×2 (09:23→21:21)
[2017-10-11] MEDS: Anastrozole 1 MG TABLET PO SCH (09:23)
[2017-10-11] MEDS: Furosemide 20 MG/2 ML VIAL IVP SCH ×2 (09:24→21:21)
[2017-10-11] MEDS: (Fish Oil/Dha/Epa [Fish Oil 1,200 Mg Fish Oil] 1 CAP) PO SCH (09:24)
[2017-10-11] MEDS: (Ubidecarenone [Coq10] 50 MG) PO SCH (09:24)
[2017-10-11] MEDS: Cholecalciferol (D-3) 1,000 UNIT TABLET PO SCH (09:28)
[2017-10-11 09:53] LABS: Basophils # 0.1 K/mcL (0.0-0.2); Basophils % 0.8 %; Eosinophils # 0.3 K/mcL (0.0-0.6); Eosinophils % 3.3 %; Hematocrit 45.5 % (35.3-44.9); Immature Granulocytes % 0.3 % (0-4); Lymphocytes # 2.1 K/mcL (0.6-4.6); Lymphocytes % 27.9 %; Mean Corpuscular HGB Conc 31.6 g/dL (31.6-35.5); Mean Corpuscular Hemoglobin 27.2 pg (28.0-33.3); Mean Platelet Volume 10.3 fL (9.4-12.4); Monocytes # 0.8 K/mcL (0.0-1.3); Monocytes % 9.9 %; Neutrophils # 4.4 K/mcL (1.6-8.9); Platelet Count 320 K/mcL (140-400); Red Blood Count 5.29 M/mcL (3.82-4.97); Red Cell Distribution Width 13.2 % (11.5-14.5); Segmented Neutrophils % 57.8 %
--- NOTE | 2017-10-11 09:53 | Electrophysiology ProgressNote ---
Date of Encounter: 10/11/17 Time of Encounter: 09:51 Assessment and Plan (1) Atrial flutter Current Visit: Yes Status: Acute Paroxysmal A-Fib/Flutter. Symptomatic--exertional dyspnea, significant fatigue. Pt reports daily episodes of A-Fib/Flutter. On admission pt was SR, paced. DCCV attempted 09/12/17 as outpt unsuccessful. Admitted for antiarrhythmic initiation--Sotalol 80mg BID. Yesterday, QTc prolonged and Sotalol dose was decreased to 40mg BID. Pt went into A-Flutter at ~2AM overnight. Undergoing stress test this AM given new A-Fib/flutter diagnosis and previous complaints of chest pain. Stress test pending. Discussed and reviewed with Dr. Rod Braga. Since pt went into A-Flutter after reducing Sotalol dose due to prolonged QTc, recommend stopping Sotalol. Allow 24hr washout period. If stress test is negative, plan to start Rythmol 150mg [id number] after washout period. Continue Cardizem CD 120mg daily and Lopressor 50mg BID. HR 80s-low 100s at bedside, A-Fib. Anticoagulated on Eliquis. Denies any missed doses in the past 30 days. Limited TTE EF 55%, severely dilated LA. Continuous telemetry while inpt. Baseline EKG 10/09/17 1033 SR Paced, HR 60, QT/QTc 449/449ms. EKG s/p 2 doses 10/10/17 0607 SR Paced, HR 62, QT/QTc 490/495ms. EKG s/p 3 doses of Sotalol 10/10/17 1529 SR Paced, HR 60, QT/QTc 489/489ms. QRS 82ms. Obtain EKG today. Continue to follow. Pt elects to stay inpt for washout period and potential initiation of Rythmol--would need monitored for 5 doses. Further recommendations once stress test results. Qualifiers: Atrial flutter type: unspecified Qualified Code(s): I48.92 - Unspecified atrial flutter (2) Pacemaker Current Visit: No Status: Acute PPM in place, follows with device clinic. (3) Obesity (BMI 30-39.9) Current Visit: Yes Status: Acute Lifestyle modification needed. (4) Diabetes type 2, controlled Current Visit: Yes Status: Chronic Continue Metformin as inpt. Qualifiers: Diabetes mellitus fci insulin use: without assistant terminal manager use Diabetes mellitus complication status: without complication Qualified Code(s): E11.9 - Type 2 diabetes mellitus without complications (5) Acute diastolic (congestive) heart failure Current Visit: Yes Status: Acute Worsening dyspnea and LE edema over recent weeks, also ten pound weight gain in the past month. CXR shows possible early RLL PNA. Evaluated by hospitalist, thought to be CHF, not PNA. Started on IV diuresis--Lasix 20mg BID. Dyspnea and LE edema have improved. Limited TTE EF 55%. Will continue IV diuresis as inpt and transition to PO Lasix at d/c. Strict I/Os, Na and fluid restriction, daily weights. Of note, down 3kg since starting IV diuresis. Checking BMP today. Discussion w patient/family: The assessment and plan as outlined above was discussed with the patient and/or family members who expressed understanding and agreement. All questions were answered. Thank you for involving us in the care of your patient. Please call with any questions. I will discuss all the above with Dr. Rod Braga and make changes as necessary. Subjective Principal diagnosis: PAF Interval history: S/P 4 sotalol doses. Sotalol decreased to 40mg BID yesterday due to QTc prolongation. Pt went into A-Flutter at ~2AM. Denies acute complaints currently. Dyspnea has continued to improve. Stress test pending, completed this AM. Objective Vital Signs, Last 4 Hours Temp Pulse Resp BP Pulse Ox 10/11/17 08:00 97.5 F L 81 18 119/92 94 Vital Signs Temp Pulse Resp BP Pulse Ox 10/11/17 08:00 97.5 F L 81 18 119/92 94 10/11/17 04:54 95 14 105/60 97 10/10/17 22:35 93 10/10/17 15:43 98.1 F 60 16 127/61 93 10/10/17 11:24 97.7 F 63 16 134/69 94 Intake and Output 10/10/17 10/11/17 10/11/17 23:59 07:59 15:59 Intake Total 0 / 0 Balance 0 / 0 Intake: Oral 0 / 0 Other: Meal Breakfast Percent of Meal Consumed 0% # Voids 6 Weight 93.7 kg Blood Glucose* 107 135 Patient Weight 10/11/17 23:59 Weight 93.7 kg General: Conversant, No Apparent Distress HEENT: Atraumatic, Normocephaly, Mucus Membranes Moist Neck: No JVD, Normal carotid pulses Cardiac: Other (irregularly irregular) Lungs: Normal Breath Sounds, No Wheeze, Rales, Rhonchi Neuro: Alert and responsive, No focal deficits noted Abdomen: Soft, Non-Tender Skin: No rashes noted on visualized skin Musculoskeletal: No Chest Wall Tenderness Extremities: No Clubbing, No Cyanosis, No Edema, Normal Pulses Results 10/09/17 10:16 10/10/17 05:43 Active Medications Acetaminophen (Tylenol) 650 mg PO HS ESTHER Stop: 04/11/18 22:31 Last Admin: 10/10/17 22:45 Dose: 650 mg Anastrozole (Arimidex) 1 mg PO DAILY [facility] Stop: 04/11/18 09:01 Last Admin: 10/11/17 09:23 Dose: 1 mg Apixaban (Eliquis) 5 mg PO BID [facility] Stop: 04/10/18 21:01 Last Admin: 10/11/17 09:23 Dose: 5 mg Atorvastatin Calcium (Lipitor) 40 mg PO HS ESTHER Stop: 04/10/18 21:01 Last Admin: 10/10/17 22:09 Dose: 40 mg Diltiazem HCl (Cardizem Cd) 120 mg PO DAILY [facility]HER Stop: 04/11/18 09:01 Last Admin: 10/11/17 09:23 Dose: 120 mg Diphenhydramine HCl (Benadryl) 25 mg PO HS PRN PRN Reason: Insomnia Stop: 04/11/18 22:31 Last Admin: 10/10/17 22:45 Dose: 25 mg Furosemide (Lasix) 20 mg IVP BID [facility]HER Stop: 04/10/18 14:16 Last Admin: 10/11/17 09:24 Dose: 20 mg Lactobacillus Acidophilus/Rhamnosus (Culturelle) 1 each PO DAILY ESHTER Stop: 04/11/18 09:01 Last Admin: 10/11/17 09:23 Dose: 1 each Metformin HCl (Glucophage) 500 mg PO BIDWM [facility]HER Stop: 04/10/18 17:01 Last Admin: 10/11/17 09:23 Dose: 500 mg Metoprolol Tartrate (Lopressor) 50 mg PO BID [facility]HER Stop: 04/11/18 21:01 Last Admin: 10/11/17 09:23 Dose: 50 mg Multivitamins/Calcium (Thera M Plus) 1 tab PO DAILY [facility] Stop: 04/11/18 09:01 Last Admin: 10/11/17 09:23 Dose: 1 tab Pharmacy Profile Note (Patient Taking Own Medication) 0 each PO DAILY [facility]HER Stop: 04/11/18 09:01 Last Admin: 10/11/17 09:24 Dose: Not Given Pharmacy Profile Note (Patient Taking Own Medication) 0 each PO DAILY [facility]HER Stop: 04/11/18 09:01 Last Admin: 10/11/17 09:24 Dose: Not Given Vitamin D (Vitamin D) 1,000 unit PO DAILY ESTHER Stop: 04/11/18 09:01 Last Admin: 10/11/17 09:28 Dose: 1,000 unit - Imaging and Cardiology Stress Test: pending Echo: report reviewed - EKG Interpretation EKG results cardiology: other (12 hr tele AVG HR 79, A-Flutter since 2AM.) - VTE Reasons for not Prescribing Prophylaxis: Not indicated-Anticoagulated or INR therapeutic Consult Discharge Plan - Plan Referrals: Clarita Henry MD [Primary Care Provider] -
[2017-10-11 09:54] LABS: Hemoglobin 14.4 g/dL (11.5-15.4)
[2017-10-11 10:10] LABS: BUN/Creatinine Ratio 25 (6-26); Blood Urea Nitrogen 18 mg/dL (8-23); Calcium 9.7 mg/dL (8.6-10.3); Carbon Dioxide 26 mEq/L (23-29); Chloride 103 mEq/L (98-107); Glucose 145 mg/dL (70-105); Osmolality,Calculated 290 (280-300); Potassium 4.2 mEq/L (3.5-5.1); Sodium 138 mEq/L (136-145); eGFR For African Americans > 60 (> 60); eGFR For Non-African Americans > 60 (> 60)
--- NOTE | 2017-10-11 12:12 | Event Note ---
Date of Encounter: 10/11/17 Time of Encounter: 12:11 Medicine will be signing off this patient, her symptoms are not indicative of pneumonia, and she has been stable. kindly reconsult prn, thank you.
--- NOTE | 2017-10-11 12:17 | Electrocardiograph Report ---
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
--- NOTE | 2017-10-11 14:18 | Event Note ---
Date of Encounter: 10/11/17 Time of Encounter: 14:18 - Cardiology Event Note Stress test negative for ischemia or infarct. Plan to start Rythmol tomorrow, 150mg [id number].
--- NOTE | 2017-10-11 16:47 | Electrocardiograph Report ---
[place] [address] Test Date: 2017-10-11 Pat Name: Deena Rojas Department: 111 Room: 2NE32 Gender: Director Information Security: [id number] : 1945 Requested By: Abiodun Cohen Order Number: [id number] Reading MD: Jf Aguirre DO Measurements Intervals [place] Rate: 108 P: DC: 0 QRS: 33 QRSD: 73 T: -31 QT: 356 QTc: 419 Interpretive Statements ATRIAL FIBRILLATION WITH RAPID VENTRICULAR RESPONSE NONSPECIFIC ST & T-WAVE ABNORMALITY Electronically Signed On 10-11-2017 16:45:48 EDT by Jf Aguirre DO
[2017-10-11] MEDS: Acetaminophen 325 MG TABLET PO SCH (21:21)
[2017-10-12 09:18] LABS: Basophils # 0.1 K/mcL (0.0-0.2); Basophils % 0.8 %; Eosinophils # 0.3 K/mcL (0.0-0.6); Hematocrit 42.8 % (35.3-44.9); Hemoglobin 13.8 g/dL (11.5-15.4); Immature Granulocytes % 0.2 % (0-4); Lymphocytes # 2.4 K/mcL (0.6-4.6); Lymphocytes % 29.1 %; Mean Corpuscular HGB Conc 32.2 g/dL (31.6-35.5); Mean Corpuscular Hemoglobin 27.4 pg (28.0-33.3); Mean Corpuscular Volume 84.9 fL (83.0-100.0); Mean Platelet Volume 10.3 fL (9.4-12.4); Monocytes # 0.6 K/mcL (0.0-1.3); Monocytes % 7.4 %; Platelet Count 356 K/mcL (140-400); Red Blood Count 5.04 M/mcL (3.82-4.97); Red Cell Distribution Width 13.2 % (11.5-14.5); Segmented Neutrophils % 59.5 %
[2017-10-12] MEDS: Apixaban 5 MG TABLET PO SCH ×2 (09:35→20:13)
[2017-10-12] MEDS: Lactobacillus 1 EACH CAP.SPRINK PO SCH (09:35)
[2017-10-12] MEDS: Cholecalciferol (D-3) 1,000 UNIT TABLET PO SCH (09:35)
[2017-10-12] MEDS: *HR* Metformin 500 MG TABLET PO SCH ×2 (09:35→17:29)
[2017-10-12] MEDS: Diltiazem CD (24hr) 120 MG CAPSULE PO SCH (09:35)
[2017-10-12] MEDS: Anastrozole 1 MG TABLET PO SCH (09:35)
[2017-10-12] MEDS: Furosemide 20 MG/2 ML VIAL IVP SCH (09:35)
[2017-10-12] MEDS: Multivit/Ca/Min/Fe/FA 1 TAB TABLET PO SCH (09:35)
--- NOTE | 2017-10-12 09:40 | Electrophysiology ProgressNote ---
Date of Encounter: 10/12/17 Time of Encounter: 09:36 Assessment and Plan (1) Atrial flutter Current Visit: Yes Status: Acute Paroxysmal A-Fib/Flutter. Symptomatic--exertional dyspnea, significant fatigue. Pt reports daily episodes of A-Fib/Flutter. On admission pt was SR, paced. DCCV attempted 09/12/17 as outpt unsuccessful. Admitted for antiarrhythmic initiation--Sotalol 80mg BID. QTc prolonged and Sotalol dose was decreased to 40mg BID. Pt went into A- Flutter after decrease. Stopped Sotalol, last dose 10/10/17 PM. Allowed 24hr washout period. Starting Rythmol this AM 150mg [id number]. Stress test 10/11/17 negative for ischemia or infarct. Continue Cardizem CD 120mg daily and Lopressor 50mg BID. HR 80s at bedside, A- Flutter. Anticoagulated on Eliquis. Denies any missed doses in the past 30 days. Limited TTE EF 55%, severely dilated LA. Continuous telemetry while inpt. Baseline EKG 10/09/17 1033 SR Paced, HR 60, QT/QTc 449/449ms. EKG 10/10/17 s/p 2 doses 10/10/17 0607 SR Paced, HR 62, QT/QTc 490/495ms. EKG 10/10/17 s/p 3 doses of Sotalol 10/10/17 1529 SR Paced, HR 60, QT/QTc 489/ 489ms. QRS 82ms. EKG 10/11/17 A-Flutter RVR, HR 108, QRS 73ms, QT/QTc 356/419ms. EKG 10/12/17 A-Flutter, HR 84, QRS 84ms, QT/QTc 414/455ms. Needs monitored inpt for 5 rythmol doses--daily EKGs to monitor QRS. 5th dose will be tomorrow at 2PM. NPO after midnight. If pt remains in A-Flutter, plan for DCCV tomorrow. No missed eliquis doses, no DARIO indicated. Anticipate d/c tomorrow if converts to SR. Qualifiers: Atrial flutter type: unspecified Qualified Code(s): I48.92 - Unspecified atrial flutter (2) Acute diastolic (congestive) heart failure Current Visit: Yes Status: Acute Worsening dyspnea and LE edema over recent weeks, also ten pound weight gain in the past month. CXR showed possible early RLL PNA. Evaluated by hospitalist, thought to be CHF, not PNA. Started on IV diuresis--Lasix 20mg BID. Dyspnea and LE edema have improved. Limited TTE EF 55%. Strict I/Os, Na and fluid restriction, daily weights. Of note, down 4kg since starting IV diuresis, back to baseline with symptom improvement. Wll stop IV diuresis, start PO Lasix 20mg daily tomorrow. Discussion w patient/family: The assessment and plan as outlined above was discussed with the patient and/or family members who expressed understanding and agreement. All questions were answered. Thank you for involving us in the care of your patient. Please call with any questions. I will discuss all the above with Dr. Rod Braga and make changes as necessary. Subjective Principal diagnosis: PAF Interval history: Sotalol stopped yesterday--last dose 10/10/16 PM. Pt went back into A-Flutter after Sotalol decrease due to QTc prolongation. Allowing washout and starting Rythmol this AM--150mg [id number]. Stress test yesterday negative for ischemia or infarct. Dyspnea and LE edema have improved, weight is back to baseline. 12 hr tele AVG HR 92, A-Flutter. Objective Vital Signs, Last 4 Hours Temp Pulse Resp BP Pulse Ox 10/12/17 07:00 97.5 F L 98 17 123/88 98 Vital Signs Temp Pulse Resp BP Pulse Ox 10/12/17 07:00 97.5 F L 98 17 123/88 98 10/12/17 04:46 81 18 115/76 98 10/11/17 21:35 97 10/11/17 21:00 98.5 F 76 16 104/74 97 10/11/17 16:54 97.4 F L 88 18 99/63 94 10/11/17 12:00 97.6 F 95 18 108/87 96 Intake and Output 10/11/17 10/12/17 10/12/17 23:59 07:59 15:59 Intake Total 240 / 240 360 / 360 Balance 240 / 240 360 / 360 Intake: Oral 240 / 240 360 / 360 Other: Meal Dinner Breakfast Percent of Meal Consumed 100% 100% # Voids 2 0 # Bowel Movements 1 Weight 92.2 kg Blood Glucose* 106 130 Patient Weight 10/12/17 23:59 Weight 92.2 kg General: Conversant, No Apparent Distress HEENT: Atraumatic, Normocephaly, Mucus Membranes Moist Neck: No JVD, Normal carotid pulses Cardiac: Other (regularly irregular) Lungs: Normal Breath Sounds, No Wheeze, Rales, Rhonchi Neuro: Alert and responsive, No focal deficits noted Abdomen: Soft, Non-Tender Skin: No rashes noted on visualized skin Musculoskeletal: No Chest Wall Tenderness Extremities: No Clubbing, No Cyanosis, No Edema, Normal Pulses Results 10/12/17 08:37 10/11/17 09:13 Lab Results 10/11/17 10/11/17 10/12/17 09:13 09:13 08:37 WBC 7.6 8.4 Hgb 14.4 D 13.8 Hct 45.5 H 42.8 Plt Count 320 356 Sodium 138 Potassium 4.2 Chloride 103 Carbon Dioxide 26 BUN 18 Creatinine 0.71 Glucose 145 H Calcium 9.7 Short CBC 10/12/17 10/11/17 Range/Units 08:37 09:13 WBC 8.4 7.6 (4.3-11.1) K/mcL Hgb 13.8 14.4 D (11.5-15.4) g/dL Hct 42.8 45.5 H (35.3-44.9) % Plt Count 356 320 (140-400) K/mcL Neutrophils # 5.0 4.4 (1.6-8.9) K/mcL BMP 10/11/17 Range/Units 09:13 Sodium 138 (136-145) mEq/L Potassium 4.2 (3.5-5.1) mEq/L Chloride 103 (98-107) mEq/L Carbon Dioxide 26 (23-29) mEq/L BUN 18 (8-23) mg/dL Creatinine 0.71 (0.60-1.20) mg/dL Glucose 145 H (70-105) mg/dL Calcium 9.7 (8.6-10.3) mg/dL Active Medications Acetaminophen (Tylenol) 650 mg PO HS ESTHER Stop: 04/11/18 22:31 Last Admin: 10/11/17 21:21 Dose: 650 mg Anastrozole (Arimidex) 1 mg PO DAILY ESTHER Stop: 04/11/18 09:01 Last Admin: 10/11/17 09:23 Dose: 1 mg Apixaban (Eliquis) 5 mg PO BID ESTHER Stop: 04/10/18 21:01 Last Admin: 10/11/17 21:21 Dose: 5 mg Atorvastatin Calcium (Lipitor) 40 mg PO HS ESTHER Stop: 04/10/18 21:01 Last Admin: 10/11/17 21:21 Dose: 40 mg Diltiazem HCl (Cardizem Cd) 120 mg PO DAILY ESTHER Stop: 04/11/18 09:01 Last Admin: 10/11/17 09:23 Dose: 120 mg Diphenhydramine HCl (Benadryl) 25 mg PO HS PRN PRN Reason: Insomnia Stop: 04/11/18 22:31 Last Admin: 10/11/17 21:22 Dose: 25 mg Furosemide (Lasix) 20 mg IVP BID ESTHER Stop: 04/10/18 14:16 Last Admin: 10/11/17 21:21 Dose: 20 mg Lactobacillus Acidophilus/Rhamnosus (Culturelle) 1 each PO DAILY ESTHER Stop: 04/11/18 09:01 Last Admin: 10/11/17 09:23 Dose: 1 each Metformin HCl (Glucophage) 500 mg PO BIDWM ESTHER Stop: 04/10/18 17:01 Last Admin: 10/11/17 15:50 Dose: 500 mg Metoprolol Tartrate (Lopressor) 50 mg PO BID ESTHER Stop: 04/11/18 21:01 Last Admin: 10/11/17 21:21 Dose: 50 mg Multivitamins/Calcium (Thera M Plus) 1 tab PO DAILY ESTHER Stop: 04/11/18 09:01 Last Admin: 10/11/17 09:23 Dose: 1 tab Pharmacy Profile Note (Patient Taking Own Medication) 0 each PO DAILY ESTHER Stop: 04/11/18 09:01 Last Admin: 10/11/17 09:24 Dose: Not Given Pharmacy Profile Note (Patient Taking Own Medication) 0 each PO DAILY ESTHER Stop: 04/11/18 09:01 Last Admin: 10/11/17 09:24 Dose: Not Given Propafenone HCl (Rhythmol) 150 mg PO Q8H ESTHER Stop: 04/13/18 06:01 Last Admin: 10/12/17 05:42 Dose: 150 mg Vitamin D (Vitamin D) 1,000 unit PO DAILY ESTHER Stop: 04/11/18 09:01 Last Admin: 10/11/17 09:28 Dose: 1,000 unit - Imaging and Cardiology Stress Test: report reviewed Echo: report reviewed - EKG Interpretation EKG results cardiology: personally reviewed, other (12 hr tele AVG HR 92, A- Flutter) - VTE Reasons for not Prescribing Prophylaxis: Not indicated-Anticoagulated or INR therapeutic Consult Discharge Plan - Plan Referrals: Clarita Henry MD [Primary Care Provider] -
[2017-10-12 09:54] LABS: BUN/Creatinine Ratio 31 (6-26); Blood Urea Nitrogen 23 mg/dL (8-23); Calcium 9.4 mg/dL (8.6-10.3); Carbon Dioxide 24 mEq/L (23-29); Chloride 103 mEq/L (98-107); Glucose 177 mg/dL (70-105); Osmolality,Calculated 292 (280-300); Potassium 4.1 mEq/L (3.5-5.1); Sodium 137 mEq/L (136-145); eGFR For African Americans > 60 (> 60); eGFR For Non-African Americans > 60 (> 60)
[2017-10-12] MEDS: (Ubidecarenone [Coq10] 50 MG) PO SCH (10:05)
[2017-10-12] MEDS: (Fish Oil/Dha/Epa [Fish Oil 1,200 Mg Fish Oil] 1 CAP) PO SCH (10:05)
[2017-10-12] MEDS: Acetaminophen 325 MG TABLET PO SCH (22:33)
[2017-10-13] MEDS: Lactobacillus 1 EACH CAP.SPRINK PO SCH (08:56)
[2017-10-13] MEDS: Anastrozole 1 MG TABLET PO SCH (08:56)
[2017-10-13] MEDS: Apixaban 5 MG TABLET PO SCH (08:56)
[2017-10-13] MEDS: Diltiazem CD (24hr) 120 MG CAPSULE PO SCH (08:56)
[2017-10-13] MEDS: (Fish Oil/Dha/Epa [Fish Oil 1,200 Mg Fish Oil] 1 CAP) PO SCH (08:57)
[2017-10-13] MEDS: Multivit/Ca/Min/Fe/FA 1 TAB TABLET PO SCH (08:57)
[2017-10-13] MEDS: Cholecalciferol (D-3) 1,000 UNIT TABLET PO SCH (08:57)
[2017-10-13] MEDS: (Ubidecarenone [Coq10] 50 MG) PO SCH (08:57)
[2017-10-13] MEDS ORDERED: Furosemide 20 MG TABLET PO SCH (09:00)
--- NOTE | 2017-10-13 09:07 | Event Note ---
Date of Encounter: 10/13/17 Time of Encounter: 09:00 - Cardiology Event Note Patient denies any new concerns or complaints. Patient reports she can still "tell she is out of rhythm". Confirms compliance with anticoagulation with no missed doses of the past 30 days. Patient agreeable to cardioversion today as planned. Status post 4 doses of Rythmol 150 mg by mouth every 8 hours, ECG this morning showed A. fib with QRS 86 ms. Currently A. fib on telemetry with intermittent V pacing with heart rate in the 70s to 80s. All questions answered. Patient agreeable to proceed. Possible discharge later today.
[2017-10-13] MEDS ORDERED: *HR* FentaNYL (PF) 100 MCG/2 ML VIAL IVP PRN (09:31)
[2017-10-13] MEDS ORDERED: *HR* Midazolam HCl 5 MG/5 ML VIAL IVP PRN (09:32)
[2017-10-13] MEDS ORDERED: 0.9 % Sodium Chloride 500 ML IVC ONE (09:32)
[2017-10-13] MEDS: *HR* Metformin 500 MG TABLET PO SCH (13:01)
--- NOTE | 2017-10-13 13:47 | Discharge Summary ---
Orders not resulted at time of discharge: Pending orders 10/10/17 11:52 NM halima perf SPECT multi [NM] Routine Date of Encounter: 10/13/17 Time of Encounter: 13:45 - Discharge Diagnosis (1) Atrial flutter Priority: Primary Status: Acute Comments: Direct admission for antiarrhythmic initiation for paroxysmal atrial flutter/ fibrillation. Qualifiers: Atrial flutter type: unspecified Qualified Code(s): I48.92 - Unspecified atrial flutter - Hospital Course Hospital course: Ms. Rojas is a 72 year old female directly admitted for antiarrhythmic initiation, Hospital course as follows: "Paroxysmal A-Fib/Flutter. Symptomatic--exertional dyspnea, significant fatigue. Pt reports daily episodes of A-Fib/Flutter. On admission pt was SR, paced. DCCV attempted 09/12/17 as outpt unsuccessful. Admitted for antiarrhythmic initiation--Sotalol 80mg BID. QTc prolonged and Sotalol dose was decreased to 40mg BID. Pt went into A- Flutter after decrease. Stopped Sotalol, last dose 10/10/17 PM. Allowed 24hr washout period. Starting Rythmol this AM 150mg [id number]. Stress test 10/11/17 negative for ischemia or infarct. Continue Cardizem CD 120mg daily and Lopressor 50mg BID. HR 80s at bedside, A- Flutter. Anticoagulated on Eliquis. Denies any missed doses in the past 30 days. Limited TTE EF 55%, severely dilated LA. Continuous telemetry while inpt. Baseline EKG 10/09/17 1033 SR Paced, HR 60, QT/QTc 449/449ms. EKG 10/10/17 s/p 2 doses 10/10/17 0607 SR Paced, HR 62, QT/QTc 490/495ms. EKG 10/10/17 s/p 3 doses of Sotalol 10/10/17 1529 SR Paced, HR 60, QT/QTc 489/ 489ms. QRS 82ms. EKG 10/11/17 A-Flutter RVR, HR 108, QRS 73ms, QT/QTc 356/419ms. EKG 10/12/17 A-Flutter, HR 84, QRS 84ms, QT/QTc 414/455ms". Patient remained atrial fibrillation today and underwent DC cardioversion with successful conversion to sinus rhythm with one shock of 300 J. Clinically stable postprocedure and remained sinus rhythm with ventricular pacing. Prepping for discharge home today in stable condition. Fifth dose of Rythmol given, plan to proceed with discharge once ECG completed and QRS stable. Patient aware of discontinuation of aspirin and decreased dose of metoprolol from 100 mg by mouth twice a day to 50 mg by mouth twice a day. Not provided Lasix at discharge, euvolemic on exam and will monitor if needed with mandaen of sinus rhythm. Prescription provided for Rythmol and instructions on how to utilize. All questions answered. Patient aware not to drive postprocedure. - Time Spent with Patient Total time spent providing and/or coordinating discharge services: Less than 30 minutes - Discharge Medications Prescriptions: Metoprolol [Lopressor] 50 mg PO BID #60 tablet Propafenone [Rhythmol] 150 mg PO Q8H #90 tablet Home Medications: Cholecalciferol (Vitamin D3) [Vitamin D3] 2,000 unit PO DAILY 05/11/16 [History] Lactobacillus Combination No.8 [Adult Probiotic] 1 cap PO DAILY 05/11/16 [ History] Multivit-Min/FA/Lycopen/Lutein [Centrum Silver Tablet] 1 tab PO DAILY 05/11/16 [ History] Anastrozole [Arimidex] 1 mg PO DAILY 06/13/17 [History] Atorvastatin [Lipitor] 40 mg PO HS 06/13/17 [History] Fish Oil/Dha/Epa [Fish Oil 1,200 mg Fish Oil] 1 cap PO DAILY 06/13/17 [History] Diltiazem CD (24hr) [Cardizem CD] 120 mg PO DAILY #30 cap.er.24h 06/17/17 [Rx] Metformin HCl [Fortamet] 500 mg PO BIDWM 09/12/17 [History] Apixaban [Eliquis] 5 mg PO BID 10/09/17 [History] Ubidecarenone [Coq10] 50 mg PO DAILY 10/09/17 [History] Metoprolol [Lopressor] 50 mg PO BID #60 tablet 10/13/17 [Rx] Propafenone [Rhythmol] 150 mg PO Q8H #90 tablet 10/13/17 [Rx] Allergies/Adverse Reactions: 3 Allergy/AdvReac Type Severity Reaction Status Date / Time nitrofurantoin Allergy Mild Rash Verified 10/09/17 11:00 [From Macrobid] Sulfa (Sulfonamide Allergy Rash Verified 10/09/17 11:00 Antibiotics) ciprofloxacin [From Cipro] AdvReac HEEL PAIN Verified 10/09/17 11:00 Date of admission: 10/09/17 08:59 Primary care physician: Clarita Henry Consults: 10/09/17 13:23 Consult to Hospitalist [CONS] Routine Consulting Provider: Hospitalist Marilia Reason for Consult: PNA on CXR Call Completed: Yes 10/10/17 09:33 Consult to Electrophysiology (EP) [CONS] Routine Consulting Provider: Electrophysiology Eckerty Reason for Consult: sotalol Time Notified: 09:30 Call Completed: Yes Discharging clinician: Keaton Robison Anticipated date of discharge: 10/13/17 Physical Examination Vital Signs, Last 4 Hours Temp Pulse Resp BP Pulse Ox 10/13/17 11:54 59 18 138/80 92 10/13/17 09:57 97.6 F 75 20 140/87 92 General: Conversant, No Apparent Distress Cardiac: Reg Rate and Rhythm, Normal S1 and S2, No Murmur Lungs: Normal Breath Sounds, No Wheeze, Rales, Rhonchi Skin: Other (mild eryhthema to chest and back from cardioversion, pain free) - Patient Status Disposition: Home, Self-Care Overall status at discharge: patient is progressing back to baseline - Discharge Instructions Instructions: Metoprolol (By mouth), Propafenone (By mouth), Atrial Flutter (DC ), Diabetes Mellitus Type 2 in Adults (DC), Chronic Hypertension (DC) Follow Up With: Keaton Robison, [employer] WORKER [Advanced Practice Nurse] - (If you do not receive a call from cardiology notifying of appointment, please call office for appointment. ) Clarita Henry MD [Primary Care Provider] - 10/24/17 11:15 am - Diet and Activity Diet: diabetic diet, low fat, low cholesterol - VTE Reasons for not Prescribing Prophylaxis: Not indicated-Anticoagulated or INR therapeutic
--- NOTE | 2017-10-13 15:48 | Event Note ---
Date of Encounter: 10/13/17 Time of Encounter: 15:50 - Cardiology Event Note ECG shows sinus rhythm with ventricular pacing and QRS 91 ms. Prepping for discharge to home in stable condition.
[2017-10-13 17:57] VITALS: BP 134/74
--- NOTE | 2017-10-17 08:43 | Electrocardiograph Report ---
[address] [place], [place] [address] Test Date: 2017-10-12 Pat Name: Deena Rojas Department: 111 Room: 2NE32 Gender: F Private Security Guard: LEONOR : 1945 Requested By: Abiodun Cohen Order Number: [id number] Reading MD: Chasidy Macias Measurements Intervals [place] Rate: 84 P: MD: 0 QRS: 27 QRSD: 84 T: -47 QT: 414 QTc: 455 Interpretive Statements ATRIAL FIBRILLATION Electronically Signed On 10-17-2017 8:39:40 EDT by Chasidy Macias
--- NOTE | 2017-10-17 22:16 | Electrocardiograph Report ---
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
--- NOTE | 2017-10-17 22:24 | Electrocardiograph Report ---
[place] [address] Test Date: 2017-10-13 Pat Name: Deena Rojas Department: 111 Room: 2NE32 Gender: F Resident Engineer: LEONOR : 1945 Requested By: Abiodun Cohen Order Number: [id number] Reading MD: Jf Aguirre DO Measurements Intervals [place] Rate: 72 P: [place]: 0 QRS: 30 QRSD: 94 T: -22 QT: 416 QTc: 440 Interpretive Statements ATRIAL FIBRILLATION DEMAND VENTRICULAR PACING NONSPECIFIC ST & T-WAVE ABNORMALITY Electronically Signed On 10-17-2017 22:22:27 EDT by Jf Aguirre DO
--- NOTE | 2017-10-17 22:31 | Electrocardiograph Report ---
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
--- NOTE | 2017-10-17 22:56 | Electrocardiograph Report ---
[place] [address] Test Date: 2017-10-13 Pat Name: Deena Rojas Department: 111 Room: 2NE32 Gender: Rock Breaker: LEONOR : 1945 Requested By: Junito Rhodes Order Number: [id number] Reading MD: Jf Aguirre DO Measurements Intervals [place] Rate: 61 P: 188 RI: 193 QRS: 44 QRSD: 91 T: 31 QT: 446 QTc: 448 Interpretive Statements ELECTRONIC ATRIAL PACEMAKER NONSPECIFIC ST & T-WAVE ABNORMALITY Electronically Signed On 10-17-2017 22:55:10 EDT by Jf Aguirre DO
== END 2017-10-13 17:59 | disposition home or self-care (01) | DRG 308 ==
LOC: SUATTDRO 08:59 → 2NENU 08:59
PROVIDERS: ADMIT Internal Medicine Clinical Cardiac Electrophysiology; ATTEND Internal Medicine